=== PATIENT | male | born 1990 | race African-American/Black ===

== ENCOUNTER 2018-10-26 07:39 | Inpatient (IN) ==
[2018-10-26 08:24] LABS: Baso # (Auto) 0.1 th/mm3 (0.0-0.2); Baso % (Auto) 0.7 % (0.0-2.0); Eos % (Auto) 0.2 % (0.0-4.0); Hematocrit 42.9 % (39.0-51.0); Hemoglobin 14.7 gm/dL (13.0-17.0); Lymph # (Auto) 1.1 th/mm3 (1.0-4.8); Lymph % (Auto) 12.4 % (9.0-44.0); Mean Corpuscular HGB Conc 34.4 % (32.0-36.0); Mean Corpuscular Volume 90.4 fL (80.0-100.0); Mean Platelet Volume 8.1 fL (7.0-11.0); Mono # (Auto) 0.6 th/mm3 (0.0-0.9); Mono % (Auto) 6.8 % (0.0-8.0); Neut # (Auto) 7.2 th/mm3 (1.8-7.7); Neut % (Auto) 79.9 % (16.0-70.0); Platelet Count 290 th/mm3 (150-450); Red Blood Count 4.75 mil/mm3 (4.50-5.90); Red Cell Distribution Width 12.5 % (11.6-17.2)
--- NOTE | 2018-10-26 08:31 | ED ---
HPI General Chief complaint: Abdominal Pain Stated complaint: Psych Eval/Abd Pain Complaint Time Seen by Provider: 10/26/18 07:47 History of Present Illness HPI narrative: This is a 27-year-old male with a history of anxiety disorder, acute life stressors, who presents today with complaints of chest pain times 1 month, right lower groin pain times 2 months. Patient also reports severe anxiety. According to the triage nurse, the patient's brother dropped him off here and stated he needed to be seen and evaluated by psychiatry. The patient was just recently here under a [place] and was released. Brother states that he is leaving to go out of town and the patient told him that he may not be alive when he comes home. The brother is extremely frustrated stating that his brother needs psychiatric help however reports that they immediately lifted his [place] act last time he was here. When I asked the patient if he was serious about his thoughts, he states that he did think about hurting himself because he is extremely stressed and feels as though he has no hope in life. He states that if he is discharged he knows he will be homeless because his brother does not want him living here. He is also anxious and depressed because he never knew his parents. The patient appears very emotionally tearful. He denies any drugs of abuse. He had a very flat affect. Related Data Home Medications Medication Instructions Recorded Confirmed No Known Home Medications 10/23/18 10/26/18 Allergies Allergy/AdvReac Type Severity Reaction Status Date / Time No Known Allergies Allergy Verified 10/22/18 20:36 Review of Systems ROS: all other systems reviewed are negative Constitutional Reports system reviewed and no additional complaints, except as [facility] Eyes Reports system reviewed and no additional complaints, except as [facility] ENT Reports system reviewed and no additional complaints, except as [facility] Cardiovascular Reports chest pain (Constant left upper chest pain times 1 month.), Denies diaphoresis and Denies dyspnea Respiratory Denies chest congestion, Denies cough and Denies dyspnea Gastrointestinal Reports abdominal pain (See below.), Denies nausea, Denies vomiting and Reports other (Right lower quadrant/groin pain.) Genitourinary Denies flank pain, Denies penile discharge, Denies scrotal swelling, Denies urinary frequency and Reports other (Pain in the right inguinal area.) Musculoskeletal Reports system reviewed and no additional complaints, except as [facility] Neurologic Reports system reviewed and no additional complaints, except as [facility] Family History Family History Other Family history unobtainable Social History Social History Substance History: No History of Abuse Second Hand Smoke Exposure: No Smoking Status: Never smoker How Often Do You Have a Drink Containing Alcohol: Never Recent Travel in [facility] within the Last 8 Weeks: No Recent Out of Country Travel within the Last 8 Weeks: No Immunization History Tetanus Immunization: >5 Years Exam Narrative Exam Narrative: GENERAL: Well-developed well-nourished male in no acute respiratory distress. SKIN: Focused skin assessment warm/dry. HEAD: Atraumatic. Normocephalic. EYES: No scleral icterus. No injection or drainage. ENT: No nasal bleeding or discharge. Mucous membranes pink and moist. NECK: Trachea midline. Supple. CARDIOVASCULAR: Regular rate and rhythm. No murmur appreciated. RESPIRATORY: No accessory muscle use. Clear to auscultation. Breath sounds equal bilaterally. GASTROINTESTINAL: Abdomen soft, non-tender, nondistended. Patient has subjective tenderness in his right inguinal area. There is no evidence of hernia. There is no rebound or guarding. MUSCULOSKELETAL: No obvious deformities. No clubbing. No cyanosis. No edema. NEUROLOGICAL: Awake and alert. No obvious cranial nerve deficits. Motor grossly within normal limits. Normal speech. Course Initial Documented Vital Signs Temperature 99.3 F 10/26/18 07:41 Pulse Rate 83 10/26/18 07:41 Respiratory Rate 16 10/26/18 07:41 Blood Pressure 147/91 H 10/26/18 07:41 Pulse Oximetry 99 10/26/18 07:41 Last Documented Vital Signs Temperature 97.7 F 10/29/18 06:22 Pulse Rate 80 10/29/18 13:23 Respiratory Rate 18 10/29/18 06:22 Blood Pressure 143/78 H 10/29/18 13:23 Pulse Oximetry 98 10/29/18 06:22 Medical Decision Making MDM Narrative Medical decision making narrative: This is a 27-year-old male who presents for the second time in 1 week for complaints of anxiety and suicidal thoughts. Patient states that he told his brother he may not be alive when he returns home from his trip. Brother dropped him off here and is adamant that he be evaluated. He was concerned that when he was last [place] it and he was sent home immediately. The patient is very flat affect and states he is extremely anxious. He has acute life stressors. He is medically cleared to be evaluated by psychiatry. 1345[facility] called stated that patient has been ambulating around [facility] talking on phone all day long however over the last hour he is clutching his chest and stating that he has chest pain. I instructed them to do an EKG, draw another troponin and also please do a d-dimer and then let me know when results are all back. 1430- EKG viewed by physician, no concerning abnormalities. Patient was given 324 mg of aspirin p.o. troponin and d-dimer were ordered and completed and both were negative. EKG showed arrhythmia with a NV interval of 162, QRS duration of 92. No STEMI. No further action required at this time. Medical Screen Exam Complete: Yes Emergency Medical Condition: Yes Differential Diagnosis Differential Diagnosis: Acute life stressors versus anxiety versus suicidal ideation versus depression versus somatic disorder. Lab Data Result diagrams: 10/29/18 00:45 10/29/18 00:45 Lab Results 10/26/18 10/26/18 10/26/18 Range/Units 08:10 08:10 09:21 WBC 9.0 (4.0-11.0) th/mm3 RBC 4.75 (4.50-5.90) mil/mm3 Hgb 14.7 (13.0-17.0) gm/dL Hct 42.9 (39.0-51.0) % MCV 90.4 (80.0-100.0) fL MCH 31.0 (27.0-34.0) pg MCHC 34.4 (32.0-36.0) % RDW 12.5 (11.6-17.2) % Plt Count 290 (150-450) th/mm3 MPV 8.1 (7.0-11.0) fL Neut % (Auto) 79.9 H (16.0-70.0) % Lymph % (Auto) 12.4 (9.0-44.0) % Fountain % (Auto) 6.8 (0.0-8.0) % Eos % (Auto) 0.2 (0.0-4.0) % Baso % (Auto) 0.7 (0.0-2.0) % Neut # (Auto) 7.2 (1.8-7.7) th/mm3 Lymph # (Auto) 1.1 (1.0-4.8) th/mm3 Fountain # (Auto) 0.6 (0.0-0.9) th/mm3 Eos # (Auto) 0.0 (0.0-0.4) th/mm3 Baso # (Auto) 0.1 (0.0-0.2) th/mm3 WBC Differential . Differential Comment Auto diff final D-Dimer Quant (PE/DVT) (0.00-0.50) mg/L FEU Sodium 138 (136-145) meq/L Potassium 3.5 (3.5-5.1) meq/L Chloride 103 (98-107) meq/L Carbon Dioxide 26.4 (21.0-32.0) meq/L Anion Gap 9 (5-15) meq/L BUN 9 (7-18) mg/dL Creatinine 0.97 (0.60-1.30) mg/dL Estimated GFR Greater than 89 (>89) mL/min Random Glucose 101 (74-106) mg/dL Hemoglobin A1c (4.3-6.0) % Calcium 9.5 (8.5-10.1) mg/dL Total Bilirubin 0.6 (0.2-1.0) mg/dL AST 19 (15-37) U/L ALT 31 (12-78) U/L Alkaline Phosphatase 72 (45-117) U/L Total Creatine Kinase 247 (39-308) U/L CK-MB (CK-2) Less than 1.0 (0.5-3.6) ng/mL Troponin I Less than 0.02 L (0.02-0.05) ng/mL Total Protein 8.4 H (6.4-8.2) g/dL Albumin 4.5 (3.4-5.0) g/dL Triglycerides (42-150) mg/dL Cholesterol (120-200) mg/dL LDL Cholesterol, Calc (0-99) mg/dL HDL Cholesterol (40.0-60.0) mg/dL Cholesterol/HDL Ratio Ratio Lipase 162 (73-393) U/L Vitamin B12 (193-986) pg/mL TSH (0.358-3.740) uIU/mL Urine Color Yellow (Yellw/Straw) Urine Clarity Hazy H (Clear) Urine pH 7.0 (5.0-8.5) Ur Specific Riddle 1.011 (1.002-1.035) Urine Protein Negative (Neg-Trace) mg/dL Urine Glucose (UA) Negative (Negative) mg/dL Urine Ketones 20 (Negative) mg/dL Urine Occult Blood Negative (Negative) Urine Nitrate Negative (Negative) Urine Bilirubin Negative (Negative) Urine Urobilinogen Less than 2 (Less than 2) mg/dL Ur Leukocyte Esterase Negative (Negative) Urine RBC Less than 1 (0-3) /hpf Urine WBC 1 (0-5) /hpf Ur Squamous Epith Cells <1 (0-5) /hpf Urine Bacteria Occasional H (None) /hpf Hyaline Casts 1 (0-3) /lpf Urine Mucus Many H (Occasional) /lpf Micro UA Comment Culture not ind Ur Microscopic Review Not Reportable Urine Culture Comments Culture not ind Urine Opiates Screen (Neg) Ur Barbiturates Screen (Neg) Ur Amphetamines Screen (Neg) U Benzodiazepines Scrn (Neg) Urine Cocaine Screen (Neg) U Cannabinoids Screen (Neg) 10/26/18 10/26/18 10/26/18 Range/Units 09:21 14:00 14:00 WBC (4.0-11.0) th/mm3 RBC (4.50-5.90) mil/mm3 Hgb (13.0-17.0) gm/dL Hct (39.0-51.0) % MCV (80.0-100.0) fL MCH (27.0-34.0) pg MCHC (32.0-36.0) % RDW (11.6-17.2) % Plt Count (150-450) th/mm3 MPV (7.0-11.0) fL Neut % (Auto) (16.0-70.0) % Lymph % (Auto) (9.0-44.0) % Fountain % (Auto) (0.0-8.0) % Eos % (Auto) (0.0-4.0) % Baso % (Auto) (0.0-2.0) % Neut # (Auto) (1.8-7.7) th/mm3 Lymph # (Auto) (1.0-4.8) th/mm3 Fountain # (Auto) (0.0-0.9) th/mm3 Eos # (Auto) (0.0-0.4) th/mm3 Baso # (Auto) (0.0-0.2) th/mm3 WBC Differential Differential Comment D-Dimer Quant (PE/DVT) 0.21 (0.00-0.50) mg/L FEU Sodium (136-145) meq/L Potassium (3.5-5.1) meq/L Chloride (98-107) meq/L Carbon Dioxide (21.0-32.0) meq/L Anion Gap (5-15) meq/L BUN (7-18) mg/dL Creatinine (0.60-1.30) mg/dL Estimated GFR (>89) mL/min Random Glucose (74-106) mg/dL Hemoglobin A1c (4.3-6.0) % Calcium (8.5-10.1) mg/dL Total Bilirubin (0.2-1.0) mg/dL AST (15-37) U/L ALT (12-78) U/L Alkaline Phosphatase (45-117) U/L Total Creatine Kinase (39-308) U/L CK-MB (CK-2) (0.5-3.6) ng/mL Troponin I Less than 0.02 L (0.02-0.05) ng/mL Total Protein (6.4-8.2) g/dL Albumin (3.4-5.0) g/dL Triglycerides (42-150) mg/dL Cholesterol (120-200) mg/dL LDL Cholesterol, Calc (0-99) mg/dL HDL Cholesterol (40.0-60.0) mg/dL Cholesterol/HDL Ratio Ratio Lipase (73-393) U/L Vitamin B12 (193-986) pg/mL TSH (0.358-3.740) uIU/mL Urine Color (Yellw/Straw) Urine Clarity (Clear) Urine pH (5.0-8.5) Ur Specific Riddle (1.002-1.035) Urine Protein (Neg-Trace) mg/dL Urine Glucose (UA) (Negative) mg/dL Urine Ketones (Negative) mg/dL Urine Occult Blood (Negative) Urine Nitrate (Negative) Urine Bilirubin (Negative) Urine Urobilinogen (Less than 2) mg/dL Ur Leukocyte Esterase (Negative) Urine RBC (0-3) /hpf Urine WBC (0-5) /hpf Ur Squamous Epith Cells (0-5) /hpf Urine Bacteria (None) /hpf Hyaline Casts (0-3) /lpf Urine Mucus (Occasional) /lpf Micro UA Comment Ur Microscopic Review Urine Culture Comments Urine Opiates Screen Neg (Neg) Ur Barbiturates Screen Neg (Neg) Ur Amphetamines Screen Neg (Neg) U Benzodiazepines Scrn Neg (Neg) Urine Cocaine Screen Neg (Neg) U Cannabinoids Screen Neg (Neg) 10/28/18 10/28/18 10/28/18 Range/Units 07:50 07:50 07:50 WBC (4.0-11.0) th/mm3 RBC (4.50-5.90) mil/mm3 Hgb (13.0-17.0) gm/dL Hct (39.0-51.0) % MCV (80.0-100.0) fL MCH (27.0-34.0) pg MCHC (32.0-36.0) % RDW (11.6-17.2) % Plt Count (150-450) th/mm3 MPV (7.0-11.0) fL Neut % (Auto) (16.0-70.0) % Lymph % (Auto) (9.0-44.0) % Fountain % (Auto) (0.0-8.0) % Eos % (Auto) (0.0-4.0) % Baso % (Auto) (0.0-2.0) % Neut # (Auto) (1.8-7.7) th/mm3 Lymph # (Auto) (1.0-4.8) th/mm3 Fountain # (Auto) (0.0-0.9) th/mm3 Eos # (Auto) (0.0-0.4) th/mm3 Baso # (Auto) (0.0-0.2) th/mm3 WBC Differential Differential Comment D-Dimer Quant (PE/DVT) (0.00-0.50) mg/L FEU Sodium 139 (136-145) meq/L Potassium 3.6 (3.5-5.1) meq/L Chloride 103 (98-107) meq/L Carbon Dioxide 26.9 (21.0-32.0) meq/L Anion Gap 9 (5-15) meq/L BUN 12 (7-18) mg/dL Creatinine 1.04 (0.60-1.30) mg/dL Estimated GFR Greater than 89 (>89) mL/min Random Glucose 115 H (74-106) mg/dL Hemoglobin A1c 5.8 (4.3-6.0) % Calcium 9.8 (8.5-10.1) mg/dL Total Bilirubin (0.2-1.0) mg/dL AST (15-37) U/L ALT (12-78) U/L Alkaline Phosphatase (45-117) U/L Total Creatine Kinase (39-308) U/L CK-MB (CK-2) (0.5-3.6) ng/mL Troponin I (0.02-0.05) ng/mL Total Protein (6.4-8.2) g/dL Albumin (3.4-5.0) g/dL Triglycerides 51 (42-150) mg/dL Cholesterol 119 L (120-200) mg/dL LDL Cholesterol, Calc 65 (0-99) mg/dL HDL Cholesterol 43.7 (40.0-60.0) mg/dL Cholesterol/HDL Ratio 2.72 Ratio Lipase (73-393) U/L Vitamin B12 549 Cancelled (193-986) pg/mL TSH 2.560 Cancelled (0.358-3.740) uIU/mL Urine Color (Yellw/Straw) Urine Clarity (Clear) Urine pH (5.0-8.5) Ur Specific Riddle (1.002-1.035) Urine Protein (Neg-Trace) mg/dL Urine Glucose (UA) (Negative) mg/dL Urine Ketones (Negative) mg/dL Urine Occult Blood (Negative) Urine Nitrate (Negative) Urine Bilirubin (Negative) Urine Urobilinogen (Less than 2) mg/dL Ur Leukocyte Esterase (Negative) Urine RBC (0-3) /hpf Urine WBC (0-5) /hpf Ur Squamous Epith Cells (0-5) /hpf Urine Bacteria (None) /hpf Hyaline Casts (0-3) /lpf Urine Mucus (Occasional) /lpf Micro UA Comment Ur Microscopic Review Urine Culture Comments Urine Opiates Screen (Neg) Ur Barbiturates Screen (Neg) Ur Amphetamines Screen (Neg) U Benzodiazepines Scrn (Neg) Urine Cocaine Screen (Neg) U Cannabinoids Screen (Neg) 10/29/18 10/29/18 10/29/18 Range/Units 00:45 00:45 00:45 WBC 13.8 H (4.0-11.0) th/mm3 RBC 4.86 (4.50-5.90) mil/mm3 Hgb 15.0 (13.0-17.0) gm/dL Hct 43.3 (39.0-51.0) % MCV 89.1 (80.0-100.0) fL MCH 30.8 (27.0-34.0) pg MCHC 34.6 (32.0-36.0) % RDW 13.1 (11.6-17.2) % Plt Count 307 (150-450) th/mm3 MPV 8.1 (7.0-11.0) fL Neut % (Auto) 75.1 H (16.0-70.0) % Lymph % (Auto) 15.5 (9.0-44.0) % Fountain % (Auto) 8.8 H (0.0-8.0) % Eos % (Auto) 0.1 (0.0-4.0) % Baso % (Auto) 0.5 (0.0-2.0) % Neut # (Auto) 10.4 H (1.8-7.7) th/mm3 Lymph # (Auto) 2.1 (1.0-4.8) th/mm3 Fountain # (Auto) 1.2 H (0.0-0.9) th/mm3 Eos # (Auto) 0.0 (0.0-0.4) th/mm3 Baso # (Auto) 0.1 (0.0-0.2) th/mm3 WBC Differential . Differential Comment Auto diff final D-Dimer Quant (PE/DVT) (0.00-0.50) mg/L FEU Sodium 139 (136-145) meq/L Potassium 3.7 (3.5-5.1) meq/L Chloride 104 (98-107) meq/L Carbon Dioxide 27.3 (21.0-32.0) meq/L Anion Gap 8 (5-15) meq/L BUN 12 (7-18) mg/dL Creatinine 1.18 (0.60-1.30) mg/dL Estimated GFR Greater than 89 (>89) mL/min Random Glucose 84 (74-106) mg/dL Hemoglobin A1c (4.3-6.0) % Calcium 9.2 (8.5-10.1) mg/dL Total Bilirubin 0.6 (0.2-1.0) mg/dL AST 33 (15-37) U/L ALT 35 (12-78) U/L Alkaline Phosphatase 72 (45-117) U/L Total Creatine Kinase (39-308) U/L CK-MB (CK-2) (0.5-3.6) ng/mL Troponin I 0.02 (0.02-0.05) ng/mL Total Protein 8.6 H (6.4-8.2) g/dL Albumin 4.6 (3.4-5.0) g/dL Triglycerides (42-150) mg/dL Cholesterol (120-200) mg/dL LDL Cholesterol, Calc (0-99) mg/dL HDL Cholesterol (40.0-60.0) mg/dL Cholesterol/HDL Ratio Ratio Lipase (73-393) U/L Vitamin B12 530 (193-986) pg/mL TSH 3.280 (0.358-3.740) uIU/mL Urine Color (Yellw/Straw) Urine Clarity (Clear) Urine pH (5.0-8.5) Ur Specific Riddle (1.002-1.035) Urine Protein (Neg-Trace) mg/dL Urine Glucose (UA) (Negative) mg/dL Urine Ketones (Negative) mg/dL Urine Occult Blood (Negative) Urine Nitrate (Negative) Urine Bilirubin (Negative) Urine Urobilinogen (Less than 2) mg/dL Ur Leukocyte Esterase (Negative) Urine RBC (0-3) /hpf Urine WBC (0-5) /hpf Ur Squamous Epith Cells (0-5) /hpf Urine Bacteria (None) /hpf Hyaline Casts (0-3) /lpf Urine Mucus (Occasional) /lpf Micro UA Comment Ur Microscopic Review Urine Culture Comments Urine Opiates Screen (Neg) Ur Barbiturates Screen (Neg) Ur Amphetamines Screen (Neg) U Benzodiazepines Scrn (Neg) Urine Cocaine Screen (Neg) U Cannabinoids Screen (Neg) Imaging Data Radiologist's impression: Chest X-Ray 10/26/18 07:56 CONCLUSION: 1. Cardiomegaly. 2. No focal infiltrate or pulmonary vascular congestion. Head CT 10/29/18 00:00 CONCLUSION: Negative noncontrast head CT. . Discharge Plan Discharge Disposition Patient Disposition: ED Admit(ED Internal Use Only) Discharge Condition Condition: Stable Discharge Order Discharge Orders: ED Use Only Admit Order (Routine); Ordered 10/27/18 Ordered By: Mita Tovar Discharge Details Diagnosis: Atypical chest pain, Right groin pain, Anxiety, Suicidal ideation Physicians Team ED Provider: Ronnie Chakraborty Primary Care Provider: UNKNOWN, Attending Provider: Jatin Brandt Other Providers: Cameron Mcdonald Status ED Status: Left Department Discharge Information Discharge Date/Time: 10/27/18 16:40
[2018-10-26 08:44] LABS: Albumin 4.5 g/dL (3.4-5.0); Anion Gap 9 meq/L (5-15); Aspartate Aminotransferase 19 U/L (15-37); Blood Urea Nitrogen 9 mg/dL (7-18); Calcium 9.5 mg/dL (8.5-10.1); Carbon Dioxide 26.4 meq/L (21.0-32.0); Chloride 103 meq/L (98-107); Glomerular Filtration Rate Greater Than 89 mL/min (>89); Glucose,Random 101 mg/dL (74-106); Lipase 162 U/L (73-393); Potassium 3.5 meq/L (3.5-5.1); Sodium 138 meq/L (136-145)
--- NOTE | 2018-10-26 08:44 | XR ---
EXAM DATE: 10/26/2018 8:33 AM EST AGE/SEX: 27 years / Male INDICATIONS: Chest pain. CLINICAL DATA: This is the patient's initial encounter. Patient reports that signs and symptoms have been present for 1 day and indicates a pain score of 6/10. MEDICAL/SURGICAL HISTORY: None. None. COMPARISON: No prior exams available for comparison. FINDINGS: The heart is enlarged. The pulmonary vascular pattern is normal. The lungs are clear. CONCLUSION: 1. Cardiomegaly. 2. No focal infiltrate or pulmonary vascular congestion. Electronically signed by: Duke Vera MD Board Certified Radiologist 10/26/2018 8:43 AM EST
[2018-10-26 08:45] LABS: Alanine Aminotransferase 31 U/L (12-78)
[2018-10-26 08:49] LABS: Alkaline Phosphatase 72 U/L (45-117); Creatine Kinase 247 U/L (39-308); Total Protein 8.4 g/dL (6.4-8.2)
[2018-10-26 10:02] LABS: Amphetamine Screen,Urine Neg (Neg); Barbiturate Screen,Urine Neg (Neg); Cannabinoid Screen,Urine Neg (Neg); Cocaine Screen,Urine Neg (Neg)
[2018-10-26 10:03] LABS: Opiate Screen,Urine Neg (Neg)
[2018-10-26 10:13] LABS: Bacteria,Urine Occasional /hpf; Bilirubin,Urine Negative (Negative); Clarity,Urine Hazy (Clear); Color,Urine Yellow (Yellw/Straw); Glucose,Urine (UA) Negative (Negative); Hyaline Casts,Urine 1 /lpf (0-3); Leukocyte Esterase,Urine Negative (Negative); Mucus,Urine Many /lpf (Occasional); Nitrite,Urine Negative (Negative); Specific Gravity,Urine 1.011 (1.002-1.035); Squamous Epithelial Cell,Urine <1 /hpf (0-5)
--- NOTE | 2018-10-26 19:40 | ECG ---
Date Performed: 10/26/2018 Time Performed: 09:34:58 PTAGE: 27 years EKG: Sinus rhythm WITH SINUS ARRHYTHMIA POSSIBLE RIGHT VENTRICULAR CONDUCTION DELAY EARLY REPOLARIZATION BORDERLINE EC G NO PREVIOUS TRACING DOCTOR: Lakeisha Billingsley Interpretating Date/Time 10/26/2018 19:38:43
[2018-10-27] MEDS ORDERED: Aluminum/Magnesium/Simethacone Susp 30 ML UDC PO PRN (16:00)
--- NOTE | 2018-10-27 16:20 | P.HPPSY ---
Provisional Diagnosis Admission Date: October 26, 2018 07:39 [place] I.: Unspecified psychosis Competence Certification of Person's Competence To Provide Express and Informed Consent I have personally examined Richard Cronin, a person being served at [facility] on, October 27, 2018 1608. Express and informed consent means consent voluntarily given in writing, by a competent person, after sufficient explanation and disclosure of the subject matter involved to enable the person to make a knowing and willful decision without any element of force, fraud, deceit, duress, or other form of constraint or coercion. This person is 18 years of age or older, is not now known to be incompetent to consent to treatment with a guardian advocate, and does not have a health care surrogate or proxy currently making medical treatment decisions. I have found this person to be one of the following: [xxx] Competent to provide express and informed consent, as defined above, for voluntary admission to this facility and is competent to provide express and informed consent for treatment. He/she has the consistent capacity to make well reasoned, willful, and knowing decisions concerning his or her medical or mental health treatment. The person fully and consistently understands the purpose of the admission for examination/placement and is fully capable of personally exercising all rights assured [place] Incompetent to provide express and informed consent to voluntary admission, and this is incompetent to provide express and informed consent to treatment. The person must be transferred to involuntary status and a petition for a guardian advocate filed with the Circuit Court. [] Refusing to provide express and informed consent to voluntary admission but is competent to provide express and informed consent for treatment. The person must be discharged or transferred to involuntary status. Form shall be completed within 24 hours of a person's arrival at the receiving facility and filed in the clinical record of each person: 1. Admitted on a voluntary basis 2. Permitted to provide express and informed consent to his/her own treatment 3. Allowed to transfer from involuntary to voluntary status 4. Prior to permitting a person to consent to his or her own treatment after having been previously found incompetent to consent to treatment. History of Present Illness Capacity: Has capacity History of Present Illness: Patient is a 27-year-old man, single, no children, unemployed, domiciled with stepmother, with an unclear past psychiatric history but anxiety disorder as per chart, but denies any previous psychiatric admissions, suicide attempts but has one episode of self-injurious behavior where he reports having burned his hand as a child and as well and endorsing being on psychiatric medications as a child as well (unspecified), with a substance use history significant for marijuana use and alcohol use which he states last use 1 year ago, with no significant past medical history who was brought in voluntarily by family with physical complaints and anxiety which upon evaluation patient was noted to have some disorganization, endorsing auditory hallucinations as well as suicidal ideation which patient was admitted to the inpatient psychiatry for further evaluation and management. As per chart patient was recently [place] acted and was discharged and had family endorse concern of suicide. Upon evaluation seen with staff noted B, cooperative. He is noted to have some disorganization during interview. He states that he had been feeling "weird, anxious and depressed" for the past couple of months patient also endorsed having "drank a lot used verbal and marijuana in contrary to report of him having stopped a year ago when later questioned about substance use. Patient states that sometimes he has a problem "during the day and night" but was able to specify due to his disorganization will provide more history. He also mentions having paranoid persecutory delusions of "5 people" but not able to elaborate more for the past year. He states that he has been having recent suicide ideation 3 days ago as well as today but states that he is very close and acting on it. He states having had a suicide ideations this morning but denies at time of interview and also endorsing nonspecific homicidal ideation but did not elaborate toward who the patient was noted to hesitate and refused to continue to explain. Patient also reporting having had previous episodes of auditory hallucinations stating that he heard a lot of voices around him but denying at time of interview. Family psychiatric history: Denies Past psychiatric history: Anxiety disorder as per chart, no previous psychiatric admissions, suicide attempts, has one previous self-injurious behavior burning his hands as a child. Patient reports having been on psychiatric medication as a child but was unable to recall. Substance use history: Tobacco use "sometimes", reports alcohol marijuana use 1 year ago contrary to recent statement during interview that he drank a lot and used a lot of marijuana. Urine toxicology was negative. Past with history: Denies Allergies: NKDA Social history: Single, unemployed, domiciled stepmother. Review of Systems All other systems reviewed negative except as stated in HPI PMFSH - History History Provided By: Patient, Medical Record - Medical History Medical History: Medical History (Last Reviewed 10/26/18 @ 08:06 by Raissa Rutherford) Patient denies medical problems - Surgical History Surgical History: Surgical History (Last Reviewed 10/26/18 @ 08:06 by Raissa Rutherford) No history of previous surgery - Tobacco History Second Hand Smoke Exposure: No Smoking Status: Never smoker - Alcohol History How Often Do You Have a Drink Containing Alcohol: Never - Substance Use History Substance History: No History of Abuse - Travel History Recent Travel in the [place] Within the Last 8 Weeks: No Recent Travel Out of the Country Within the Last 8 Weeks: No - Immunization History Tetanus Immunization: >5 Years Quality Measures - Psychiatric History Violence risk to others in the last 6 months: Elevated due to recent endorsement of homicidal ideation but was not able to elaborate. Violence risk to self in the last 6 months: Elevated due to recent suicide ideation. - Substance Abuse History Drug or alcohol use in the past 12 months: See HPI - Patient Strengths Patient's strengths (minimum of 2): Verbal and communicative Medications and Allergies Active Medications: Active Medications Acetaminophen (Tylenol) 650 mg PO Q4H PRN PRN Reason: Pain 1-5 or Temp >101F Al Hydrox/Mg Hydrox/Simethicone (Mag-Al Plus Susp Liq) 30 ml PO Q6H PRN PRN Reason: DYSPEPSIA Al Hydroxide/Mg Hydroxide (Milk Of Magnesia Liq) 30 ml PO Q12H PRN PRN Reason: Mild Constipation Diphenhydramine HCl (Benadryl) 50 mg PO HS PRN PRN Reason: INSOMNIA Hydroxyzine HCl (Atarax) 50 mg PO Q6H PRN PRN Reason: ANXIETY Quetiapine Fumarate (Seroquel) 25 mg PO BID PADMINI Sodium Chloride (Ns Flush) 2 ml IV.FLUSH PRN PRN PRN Reason: FLUSH AFTER USING IV ACCESS Allergies Allergy/AdvReac Type Severity Reaction Status Date / Time No Known Allergies Allergy Verified 10/22/18 20:36 Home Medications Medication Instructions Recorded Confirmed Type No Known Home Medications 10/23/18 10/26/18 History Results - Labs CBC & Chem 7: 10/26/18 08:10 10/26/18 08:10 Exam Vital signs: Vital Signs 10/26/18 18:29 10/26/18 22:35 10/27/18 05:01 Temperature 99.2 F 99.9 F H 99.2 F Pulse Rate 96 H 88 63 Respiratory Rate 18 16 17 Blood Pressure 145/94 H 138/78 131/73 Pulse Oximetry 96 98 100 10/27/18 10:34 Temperature Pulse Rate 100 H Respiratory Rate 16 Blood Pressure 154/94 H Pulse Oximetry 100 Intake & Output 10/26/18 10/27/18 10/27/18 18:59 06:59 18:59 Weight 79.832 kg Narrative: Patient not noted to be in acute distress, no gross motor abnormalities, no signs of tremor or EPS, no psychomotor agitation or retardation. - Constitutional no acute distress, cooperative Mental Status Examination Appearance: Appropriate Consciousness: Alert Orientation: Person, Place, Date/Time Motor Activity: Normal gait Speech: Unremarkable Language: Adequate Fund of Knowledge: Inadequate Attention and Concentration: Inadequate Memory: Impaired Mood: Sad, Anxious Affect: Sad, Anxious Thought Process & Associations: Intact Thought Content: Hallucinations Hallucination Type: Auditory Delusion Type: Paranoid, Other (Respiratory) Suicidal Ideation: Yes Suicidal Plan: No Suicidal Intention: No Homicidal Ideation: Yes Homicidal Plan: No Homicidal Intention: No Insight: Poor Judgment: Impulsive Assessment and Plan - Assessment (1) Unspecified psychosis Code(s): F29 - Unspecified psychosis not due to a substance or known physiological condition Status: Acute - Plan Plan: Estimated LOS: [] days Patient is a 27-year-old man who carries a diagnosis of anxiety disorder, no previous psychiatric admissions, no previous suicide attempt, has history of self interest behavior, with substance use history significant for marijuana and alcohol use although urine tox culture was negative on this occasion, was brought in by family due to concerns of depression and suicidal ideation which patient was noted to be somewhat disorganized and having paranoid ideation along with auditory hallucinations and endorsing suicidal homicidal ideations. This is a second ED visit which family has experienced deep concern for patient safety and well-being. Patient will be admitted in the inpatient psychiatric unit, patient will be admitted under voluntary status and has capacity consent for treatment. We will start patient on quetiapine 25 g p.o. twice daily as patient is robinson to antipsychotics will require upward titration for psychosis if tolerated well. Diphenhydramine 50 mg p.o. at bedtime as needed for insomnia, hydroxyzine 50 mg every 6 hours as needed for anxiety. We will continue to monitor mood and behavior. Social work intervention for psychosocial assessment. Discharge planning in progress. Justification for Continued Inpatient Stay: At risk of further decompensation at lower level care.
--- NOTE | 2018-10-27 20:49 | ECG ---
Date Performed: 10/26/2018 Time Performed: 14:05:56 PTAGE: 27 years EKG: SINUS TACHYCARDIA EARLY REPOLARIZATION ABNORMAL RHYTHM ECG INTERPRETATION BASED ON A DEFAUL T AGE OF 41 YEARS NO PREVIOUS TRACING DOCTOR: Debra Quarles Interpretating Date/Time 10/27/2018 20:42:58
[2018-10-27] MEDS: QUEtiapine 25 MG Tablet PO SCH (21:06)
[2018-10-28 08:40] LABS: Anion Gap 9 meq/L (5-15); Blood Urea Nitrogen 12 mg/dL (7-18); Calcium 9.8 mg/dL (8.5-10.1); Carbon Dioxide 26.9 meq/L (21.0-32.0); Chloride 103 meq/L (98-107); Glomerular Filtration Rate Greater Than 89 mL/min (>89); Glucose,Random 115 mg/dL (74-106); Potassium 3.6 meq/L (3.5-5.1); Sodium 139 meq/L (136-145)
[2018-10-28 08:41] LABS: Cholesterol 119 mg/dL (120-200)
[2018-10-28 08:43] LABS: Chol/HDL Ratio 2.72 Ratio; HDL Cholesterol 43.7 mg/dL (40.0-60.0); LDL Cholesterol,Calculated 65 mg/dL (0-99); Triglycerides 51 mg/dL (42-150)
[2018-10-28] MEDS: QUEtiapine 25 MG Tablet PO SCH (10:05)
--- NOTE | 2018-10-28 12:18 | P.PNPSY ---
Subjective Remarks: Reviewed electronic medical records and discussed case with staff. Follow-up was conducted in the patient's room with SERVANDO Parrish present. He was found sleeping in no apparent distress. He wakes to verbal stimulation. He does appear to be internally stimulated. States that he is "good". But he appears to perhaps have some thought blocking present. States his appetite's been good he has been sleeping well. He denies any side effects from the Seroquel at this time. Mental Status Examination Appearance: Appropriate Consciousness: Alert Orientation: Person, Place, Date/Time Motor Activity: Normal gait Speech: Unremarkable Language: Adequate Fund of Knowledge: Inadequate Attention and Concentration: Inadequate Memory: Impaired Mood: Sad, Anxious Affect: Sad, Anxious Thought Process & Associations: Intact Thought Content: Hallucinations Hallucination Type: Auditory Delusion Type: Paranoid, Other (Respiratory) Suicidal Ideation: Yes Suicidal Plan: No Suicidal Intention: No Homicidal Ideation: Yes Homicidal Plan: No Homicidal Intention: No Insight: Poor Judgment: Impulsive Assessment and Plan - Assessment (1) Unspecified psychosis Code(s): F29 - Unspecified psychosis not due to a substance or known physiological condition Status: Acute - Plan Plan: Patient will be reevaluated by the attending psychiatrist. Will increase Seroquel dosage to 50 mg twice daily as patient is denying any side effects at this time. Justification for Continued Inpatient Stay: Moving this patient to a less restrictive environment would likely result in decompensation.
--- NOTE | 2018-10-28 16:21 | P.DSPSY ---
Psychiatry Discharge Summary Inpatient Psychiatric care?: Yes Advance Directives: No Mental Health Advance Directive: No Health Care Proxy: No - Admission Admission Date: October 27, 2018 16:07 - Admission Diagnosis (1) Unspecified psychosis Code(s): F29 - Unspecified psychosis not due to a substance or known physiological condition Brief History: Patient is a 27-year-old man, single, no children, unemployed, domiciled with stepmother, with an unclear past psychiatric history but anxiety disorder as per chart, but denies any previous psychiatric admissions, suicide attempts but has one episode of self-injurious behavior where he reports having burned his hand as a child and as well and endorsing being on psychiatric medications as a child as well (unspecified), with a substance use history significant for marijuana use and alcohol use which he states last use 1 year ago, with no significant past medical history who was brought in voluntarily by family with physical complaints and anxiety which upon evaluation patient was noted to have some disorganization, endorsing auditory hallucinations as well as suicidal ideation which patient was admitted to the inpatient psychiatry for further evaluation and management. As per chart patient was recently [place] acted and was discharged and had family endorse concern of suicide. Upon evaluation seen with staff noted B, cooperative. He is noted to have some disorganization during interview. He states that he had been feeling "weird, anxious and depressed" for the past couple of months patient also endorsed having "drank a lot used verbal and marijuana in contrary to report of him having stopped a year ago when later questioned about substance use. Patient states that sometimes he has a problem "during the day and night" but was able to specify due to his disorganization will provide more history. He also mentions having paranoid persecutory delusions of "5 people" but not able to elaborate more for the past year. He states that he has been having recent suicide ideation 3 days ago as well as today but states that he is very close and acting on it. He states having had a suicide ideations this morning but denies at time of interview and also endorsing nonspecific homicidal ideation but did not elaborate toward who the patient was noted to hesitate and refused to continue to explain. Patient also reporting having had previous episodes of auditory hallucinations stating that he heard a lot of voices around him but denying at time of interview. Family psychiatric history: Denies Past psychiatric history: Anxiety disorder as per chart, no previous psychiatric admissions, suicide attempts, has one previous self-injurious behavior burning his hands as a child. Patient reports having been on psychiatric medication as a child but was unable to recall. Substance use history: Tobacco use "sometimes", reports alcohol marijuana use 1 year ago contrary to recent statement during interview that he drank a lot and used a lot of marijuana. Urine toxicology was negative. Past with history: Denies Allergies: NKDA Social history: Single, unemployed, domiciled stepmother. Tobacco Use In Past 30 Days: No How Often Do You Have a Drink Containing Alcohol: Never Hospital Course: Patient was admitted to a locked inpatient psychiatric unit yesterday. Today I was advised by his nurse that he had developed nuchal rigidity, was febrile, and was having difficulty walking. I did note that earlier when I was with the patient he was grabbing his head as if experiencing a headache. He was unable to answer clearly whether his head did in fact hurt. After a stat consult with Dr. Foy it was decided the patient would be admitted to the medical surgical floor for further evaluation and workup for possible medical illness. - Discharge Discharge Date: 10/28/18 - Discharge Diagnosis (1) Unspecified psychosis Code(s): F29 - Unspecified psychosis not due to a substance or known physiological condition Status: Acute Discharge Disposition: Medical admission to this facility - Discharge Instructions Discharge Diet: Regular Diet Activities You Can Perform: See Additionl Instruction (Per medical providers recommendations) - Discharge Time <= 30 minutes Mental Status Examination Appearance: Appropriate Consciousness: Alert Orientation: Person, Place, Date/Time Motor Activity: Normal gait Speech: Unremarkable Language: Adequate Fund of Knowledge: Inadequate Attention and Concentration: Inadequate Memory: Impaired Mood: Sad, Anxious Affect: Sad, Anxious Thought Process & Associations: Intact Thought Content: Hallucinations Hallucination Type: Auditory Delusion Type: Paranoid, Other (Respiratory) Suicidal Ideation: Yes Suicidal Plan: No Suicidal Intention: No Homicidal Ideation: Yes Homicidal Plan: No Homicidal Intention: No Insight: Poor Judgment: Impulsive Discharge/Advance Care Plan - Results Vital Signs: Last Vital Signs Temp 99.2 F 10/28/18 05:45 Pulse 105 H 10/28/18 05:45 Resp 18 10/28/18 05:45 BP 154/93 H 10/28/18 05:45 Pulse Ox 95 10/28/18 05:45 Lab Results: Abnormal Lab Results 10/28/18 07:50 Sodium 139 Potassium 3.6 Chloride 103 Carbon Dioxide 26.9 Anion Gap 9 BUN 12 Creatinine 1.04 Estimated GFR Greater than 89 Random Glucose 115 H Calcium 9.8 Triglycerides 51 Cholesterol 119 L LDL Cholesterol, Calc 65 HDL Cholesterol 43.7 Cholesterol/HDL Ratio 2.72 Laboratory Results Triglycerides 51 mg/dL (42-150) 10/28/18 07:50 Cholesterol 119 mg/dL (120-200) L 10/28/18 07:50 LDL Cholesterol, Calc 65 mg/dL (0-99) 10/28/18 07:50 HDL Cholesterol 43.7 mg/dL (40.0-60.0) 10/28/18 07:50 Urine Culture Comments Culture not ind 10/26/18 09:21 Summary of Procedures: None Imaging: ITS Impressions Chest X-Ray 10/26/18 07:56 CONCLUSION: 1. Cardiomegaly. 2. No focal infiltrate or pulmonary vascular congestion. Pending Results: None - Medications Number of antipsychotic medications at discharge: 0 - Discharge Care Plan Goals to Promote Your Health: * To prevent worsening of your condition and complications * To maintain your health at the optimal level Directions to Meet Your Goals: Take your medications as prescribed Follow your dietary instruction Follow activity as directed Keep your appointments as scheduled Take your immunizations and boosters as scheduled If your symptoms worsen call your PCP, if no PCP go to Urgent Care Center or Emergency Room For 23/05 questions related to your inpatient stay or results of tests pending at discharge, please contact JAYY Keating at Smoking is Dangerous to Your Health. Avoid second hand smoking
--- NOTE | 2018-10-28 19:25 | P.CON ---
History of Present Illness Service: [facility] Consult date: 10/28/18 Requesting Physician: Jatin Brandt Reason for Consult: rash Primary Care Provider: UNKNOWN Chief Complaint: rash History of Present Illness: Patient is a 27-year-old male of descent, no significant past medical history other than some anxiety. Apparently patient recently moved down here and is currently residing with his brother. He has been seen in the emergency room on 2 different occasions since October 22. Initially he was brought in on 10/22 for reported depression and possible suicidal ideation. He was evaluated and J pod, he denied suicidal ideation. He was referred to [facility] and was discharged in stable condition. He was brought in by his family again, family reported patient was disorganized, endorsing auditory hallucinations as well as suicidal ideation. Family was concerned about suicide and the patient was acting weird. Patient did admit to doing marijuana and possibly other substances but he did not elaborate. Drug screen was negative. There is report that patient has not been sleeping very well nor eating. Patient was admitted to inpatient psych for further evaluation. He was started on Seroquel 25 mg p.o. twice daily. Today, patient was ambulating in hallway when he was noted unsteady, had a jerky walk and looked like he was going to fall. Nurse thought she saw some tremors on his mouth and some facial drooping. Patient was assisted back to his room where he was noted with a red, pinpoint rash to his chest. He was noted slightly tachycardic and blood pressure in the 150s. Temperature was 99.2. Prior to that he had complained of anxiety and had also received Vistaril for reported anxiety. Patient had also complained of a headache and had been noted holding his head. A stat consultation was obtained with hospitalist, however patient was initially difficult to assess. Patient is now evaluated in the presence of nurse and psychiatric attendant. He is sitting up in bed, is unfolding socks and stuffing them in a pillow. He is grabbing his sheets and placing them on the floor. He is ambulating in room, gait is steady. According to nurse, this behavior is not uncommon, as he has been doing this throughout the day. I attempted to speak to patient in both [place] and [place], he was able to provide me his name but did not want to answer any more orientation questions. At times he was reluctant for me to conduct my assessment until the nurse assisted. He does not appear to have any focal deficits, no nuchal rigidity was elicited. Rash it is pretty much resolved. There is no tremors noted, no facial asymmetry. His speech is clear. He denies any headache, does not appear to have any photophobia. Initially, patient was going to be transferred to the main hospital due to concern that he was having possible meningeal symptoms and may need LP. However, symptoms have now resolved, it is unclear whether he had reaction to Seroquel. Pt. is not cooperative, refuses to get on wheelchair. Case was discussed with director of early childhood and the decision was made to keep patient in psych with consultation with hospitalist services for further work up. Review of Systems unobtainable due to mental status PMFSH - History History Provided By: Patient - Medical History Medical History: Medical History (Last Reviewed 10/28/18 @ 18:49 by JAYY Feliz) Patient denies medical problems - Surgical History Surgical History: Surgical History (Last Reviewed 10/28/18 @ 18:49 by JAYY Feliz) No history of previous surgery - Family History Family History: Family History (Last Updated 10/28/18 @ 18:49 by JAYY Feliz) Other Family history unobtainable - Social History I have reviewed the patient's Social History: Yes - Tobacco History Second Hand Smoke Exposure: No Tobacco Use In Past 30 Days: No Smoking Status: Never smoker - Alcohol History How Often Do You Have a Drink Containing Alcohol: Never - Substance Use History Substance History: No History of Abuse - Substance Use Type Marijuana Status: Early Remission Route Used: By Mouth Frequency: One time Reason for Use: Calm Down Comment: Pt stated ever since he tried marijuana couple months ago he has been feeling paranoid. - Travel History Recent Travel in the [place] Within the Last 8 Weeks: No Recent Travel Out of the Country Within the Last 8 Weeks: No - Immunization History Tetanus Immunization: Never Vaccinated Hx Influenza Vaccine This Season: No Medications and Allergies Active Medications: Active Medications Acetaminophen (Tylenol) 650 mg PO Q4H PRN PRN Reason: Pain 1-5 or Temp >101F Al Hydrox/Mg Hydrox/Simethicone (Mag-Al Plus Susp Liq) 30 ml PO Q6H PRN PRN Reason: DYSPEPSIA Al Hydroxide/Mg Hydroxide (Milk Of Magnesia Liq) 30 ml PO Q12H PRN PRN Reason: Mild Constipation Diphenhydramine HCl (Benadryl) 50 mg PO HS PRN PRN Reason: INSOMNIA Last Admin: 10/27/18 21:05 Dose: 50 mg Hydroxyzine HCl (Atarax) 50 mg PO Q6H PRN PRN Reason: ANXIETY Last Admin: 10/28/18 14:51 Dose: 50 mg Allergies Allergy/AdvReac Type Severity Reaction Status Date / Time No Known Allergies Allergy Verified 10/22/18 20:36 Home Medications Medication Instructions Recorded Confirmed Type No Known Home Medications 10/23/18 10/26/18 History Physical Exam Vital signs: Vital Signs 10/28/18 05:45 10/28/18 18:18 Temperature 99.2 F 100 F H Pulse Rate 105 H 87 Respiratory Rate 18 20 Blood Pressure 154/93 H 151/95 H Pulse Oximetry 95 100 Intake & Output 10/27/18 10/28/18 10/28/18 18:59 06:59 18:59 Intake Total 480 / 480 Balance 480 / 480 Weight 92 kg Intake: Oral 480 / 480 Other: Weight On Admission 92 kg Narrative: GENERAL: Well-nourished, well-developed 27-year-old male. SKIN: No rash noted to chest, 2 pinpoint areas to right chest wall. HEAD: Atraumatic. Normocephalic. EYES: Pupils equal and round. No scleral icterus. No injection or drainage. ENT: No nasal bleeding or discharge. Mucous membranes pink and moist. NECK: Trachea midline. No JVD. CARDIOVASCULAR: Regular rate and rhythm. RESPIRATORY: No accessory muscle use. Clear to auscultation. Breath sounds equal bilaterally. MUSCULOSKELETAL: Extremities without clubbing, cyanosis, or edema. No obvious deformities. NEUROLOGICAL: pt. is awake, oriented to self, doesn't want to answer many questions. Able to get up and ambulate without any difficulties, gait steady. No tremors noted. Speech clear. No facial asymmetry. No nuchal rigidity elicited. PSYCHIATRIC: Disorganized, poor insight. Results - Labs CBC & Chem 7: 10/29/18 00:45 10/29/18 00:45 Labs: Laboratory Results - last 24 hr 10/28/18 07:50 Sodium 139 Potassium 3.6 Chloride 103 Carbon Dioxide 26.9 Anion Gap 9 BUN 12 Creatinine 1.04 Estimated GFR Greater than 89 Random Glucose 115 H Calcium 9.8 Triglycerides 51 Cholesterol 119 L LDL Cholesterol, Calc 65 HDL Cholesterol 43.7 Cholesterol/HDL Ratio 2.72 Assessment and Plan - Plan 27-year-old male with no significant past medical history, admitted to inpatient psychiatric services for psychosis, suicidal ideation, anxiety. Patient was started on Seroquel. Today, patient was noted with unsteady gait, tremors, facial twitching, tachycardia and rash. Symptoms have now resolved. Hospital services are requested to assist with medical management. Psychosis, etiology unclear, no prior history of psychiatric illnesses Anxiety Continue with psychiatric management Seroquel has been put on hold as this may have caused allergic reaction vs EPS Sudden change in neurological status including impaired gait, tremors, facial twitching, pinpoint rash to chest area, tachycardia with elevated temperature 99.2. Unclear if symptoms are due to allergic reaction to Seroquel, received 2 doses since 10/27. Possible EPS is another possibility Report of headache, although pt. denies now -Recommend to discontinue Seroquel for now -Continue to monitor neuro checks -will check TSH, B12, RPR -CT of head if pt. cooperates Thank you for this consultation, will continue to follow patient. Code Status: Full Discussed Condition With: Alexy Briseno APRN, nephrologist Planning: Per psych
[2018-10-28 20:11] LABS: Vitamin B12 549 pg/mL (193-986)
[2018-10-28] MEDS ORDERED: QUEtiapine 25 MG Tablet PO SCH (21:00)
[2018-10-28] MEDS: Acetaminophen 325 MG Tablet PO PRN (23:46)
[2018-10-29 00:58] LABS: Baso # (Auto) 0.1 th/mm3 (0.0-0.2); Baso % (Auto) 0.5 % (0.0-2.0); Eos % (Auto) 0.1 % (0.0-4.0); Hematocrit 43.3 % (39.0-51.0); Lymph # (Auto) 2.1 th/mm3 (1.0-4.8); Lymph % (Auto) 15.5 % (9.0-44.0); Mean Corpuscular HGB Conc 34.6 % (32.0-36.0); Mean Corpuscular Hemoglobin 30.8 pg (27.0-34.0); Mean Corpuscular Volume 89.1 fL (80.0-100.0); Mean Platelet Volume 8.1 fL (7.0-11.0); Mono # (Auto) 1.2 th/mm3 (0.0-0.9); Mono % (Auto) 8.8 % (0.0-8.0); Neut # (Auto) 10.4 th/mm3 (1.8-7.7); Neut % (Auto) 75.1 % (16.0-70.0); Platelet Count 307 th/mm3 (150-450); Red Blood Count 4.86 mil/mm3 (4.50-5.90); Red Cell Distribution Width 13.1 % (11.6-17.2); White Blood Count 13.8 th/mm3 (4.0-11.0)
[2018-10-29 01:11] LABS: Alanine Aminotransferase 35 U/L (12-78); Albumin 4.6 g/dL (3.4-5.0); Anion Gap 8 meq/L (5-15); Aspartate Aminotransferase 33 U/L (15-37); Blood Urea Nitrogen 12 mg/dL (7-18); Calcium 9.2 mg/dL (8.5-10.1); Carbon Dioxide 27.3 meq/L (21.0-32.0); Chloride 104 meq/L (98-107); Glomerular Filtration Rate Greater Than 89 mL/min (>89); Glucose,Random 84 mg/dL (74-106); Potassium 3.7 meq/L (3.5-5.1); Sodium 139 meq/L (136-145)
[2018-10-29 01:14] LABS: Alkaline Phosphatase 72 U/L (45-117); Total Protein 8.6 g/dL (6.4-8.2); Troponin I 0.02 ng/mL (0.02-0.05)
--- NOTE | 2018-10-29 01:35 | CT ---
EXAM DATE: 10/29/2018 1:30 AM EST AGE/SEX: 27 years / Male INDICATIONS: Altered mental status. CLINICAL DATA: This is the patient's initial encounter. Patient reports that signs and symptoms have been present for 1 day and indicates a pain score of Nonresponsive. MEDICAL/SURGICAL HISTORY: None. None. RADIATION DOSE: 66.34 CTDI (mGy) COMPARISON: No prior exams available for comparison. TECHNIQUE: CT of the head without contrast. Using automated exposure control and adjustment of the mA and/or kV according to patient size, radiation dose was kept as low as reasonably achievable to ob tain optimal diagnostic quality images. DICOM format image data is available electronically for revi ew and comparison. FINDINGS: Cerebrum: The ventricles are normal for age. No evidence of midline shift, mass lesion, hemorrhage or acute infarction. No extraaxial fluid collections are seen. Posterior Fossa: The cerebellum and brainstem are intact. The 4th ventricle is midline. The cerebe llopontine angle is unremarkable. Extracranial: The visualized portion of the orbits is intact. Skull: The calvaria is intact. No evidence of skull fracture. CONCLUSION: Negative noncontrast head CT. . Electronically signed by: Jose David Marie MD Board Certified Radiologist 10/29/2018 1:34 AM EST
[2018-10-29] MEDS ORDERED: Sodium Chlor 0.9% Inj 500 ML IV.SIG SCH (02:00)
--- NOTE | 2018-10-29 02:11 | P.PNIM ---
Subjective Interval history: Yesterday, a STAT consult was placed to the hospitalist group because the patient was noted with unsteady gait, tremors, facial twitching, tachycardia and rash. Symptoms spontaneously resolved. A Halicat was called around midnight because the patient's symptoms resumed with facial twitching and tremors along with tachycardia up to 133 bpm. Patient also had a temperature of 99.9. The patient was transferred to the medical psychiatric unit for further observation and management. Patient is observed on in room security camera moving all extremities well and resting comfortably. When I went to evaluate him, he complained of pain all over and inability to move. He was not very cooperative with answering questions and perseverated over wanting to watch the news. When CNN was turned on, he asked for [employer]. He also repetitively asked to be able to call his "girl ". Physical Exam Vital signs: Last Vital Signs Temp 99.9 F H 10/28/18 23:23 Pulse 125 H 10/28/18 23:23 Resp 18 10/28/18 23:23 BP 143/103 H 10/28/18 23:23 Pulse Ox 97 10/28/18 23:25 Intake & Output 10/26/18 10/27/18 10/28/18 10/29/18 06:59 06:59 06:59 06:59 Intake Total 480 / 480 Balance 480 / 480 Weight 79.832 kg 92 kg Narrative: GENERAL: Well-nourished, well-developed 27-year-old male complaining of pain "all over my body". SKIN: No rash noted to chest, 2 pinpoint areas to right chest wall. HEAD: Atraumatic. Normocephalic. EYES: Pupils equal and round. No scleral icterus. No injection or drainage. ENT: No nasal bleeding or discharge. Mucous membranes pink and moist. NECK: Trachea midline. No JVD. CARDIOVASCULAR: Regular rate and rhythm. RESPIRATORY: No accessory muscle use. Clear to auscultation. Breath sounds equal bilaterally. MUSCULOSKELETAL: Extremities without clubbing, cyanosis, or edema. No obvious deformities. NEUROLOGICAL: pt. is awake, oriented to self, doesn't want to answer many questions. No weakness noted. No tremors noted. No facial asymmetry. No nuchal rigidity elicited. PSYCHIATRIC: Disorganized, poor insight. Perseverative thoughts. Results Labs CBC & Chem 7: 10/29/18 00:45 10/29/18 00:45 Imaging Imaging: Impressions Head CT 10/29/18 00:00 CONCLUSION: Negative noncontrast head CT. . Assessment and Plan (1) Unspecified psychosis: Code(s): F29 - Unspecified psychosis not due to a substance or known physiological condition Status: Acute Plan Mr. Cheyenne Quinn is a 27-year-old male with no significant past medical history who was admitted to inpatient psychiatric services for psychosis, suicidal ideation, and anxiety. Patient was started on Seroquel. Yesterday, the patient was noted with unsteady gait, tremors, facial twitching, tachycardia and rash. Symptoms spontaneously resolved. A Halicat was called because patient's symptoms resumed this evening with facial twitching and tremors along with tachycardia up to 133 bpm. Patient also had a temperature of 99.9. The patient was transferred to the medical psychiatric unit for further observation and management. Psychosis, etiology unclear, no prior history of psychiatric illnesses. Anxiety Continue with psychiatric management Seroquel on hold for concern of allergic reaction Altered Mental Status Again, the patient has had a sudden change in neurological status including tremors, facial twitching, pain "all over "his body, and tachycardia with elevated temperature 99.9. Possible EPS Possible behavioral/psychiatric component -Agree regarding discontinuing Seroquel -Continue to monitor neuro checks -Will check TSH, B12, RPR with STAT labs -CT of head STAT - will give Ativan 1 mg IV as he is not cooperative at the time of my examination -check STAT CMP to evaluate organ function and electrolytes as possible causative/contributing factors Elevated temperature 99.9, Tachycardia, Myalgias -IVF bolus with NS at 500 cc/hr followed by maintenance dose at 125 cc/hr -Will check blood cultures - follow results -check STAT CBC to evaluate for infection/anemia (as possible causative/ contributing factors for AMS) -Check for Flu A and B -No nuchal rigidity on exam Chest pain vs Myalgias -psychiatric nurses report patient complaining of chest pain but he reports diffuse body pain when I evaluate him -will check another Troponin I -r/o influenza a/b Progress Note: Quality VTE Deep Vein Thrombosis/Pulmonary Embolism Present on Admission: No _ (1) Unspecified psychosis Qualifiers: Psychosis type: Schizoaffective disorder type: Schizophrenia type:
[2018-10-29] MEDS: Sod Chloride 0.9% Inj 1,000 ML IV.CONT SCH ×2 (02:54→09:17)
[2018-10-29 03:22] LABS: Thyroid Stimulating Hormone 3.28 uIU/mL (0.358-3.740)
--- NOTE | 2018-10-29 11:43 | P.PN ---
Subjective Interval history: follow up for elevated heart rate, change in mental status, tremors: Events of nightshift reviewed. Hellicat called again due to pt noted with elevated HR, BP, temp 99.9. Per RN, prior to this episode pt. was observed masturbating in day room. Vitals were taken after. Today, pt.has been talking, ambulating, removing his IVF from PIV. Inappropriate sexual comments made to RN this morning during assessment. Pt. seen and examined with RN and psychology associate at [facility]. He is sleeping, awakes to voice, refusing to speak. States he doesn't know his name and will not answer any questions. No tremors noted, VSS. Per RN, has been talking to brother on the phone. Physical Exam Vital signs: Vital Signs 10/28/18 18:18 10/28/18 23:23 10/28/18 23:25 Temperature 100 F H 99.9 F H Pulse Rate 87 125 H Respiratory Rate 20 18 Blood Pressure 151/95 H 143/103 H Pulse Oximetry 100 97 10/29/18 06:22 Temperature 97.7 F Pulse Rate 80 Respiratory Rate 18 Blood Pressure 140/65 Pulse Oximetry 98 Intake & Output 10/28/18 10/29/18 10/29/18 18:59 06:59 18:59 Intake Total 500 / 500 1000 / 1000 Balance 500 / 500 1000 / 1000 Intake: IV 500 / 500 1000 / 1000 NS Inj 1,000 ML @ 125 mls/hr IV 1000 / 1000 .CONT .Q8H PADMINI Rx#:[id number] NS Inj 500 ML @ 1000 mls/hr IV. 500 / 500 SIG BOLUS PADMINI Rx#:[id number] Narrative: GENERAL: Well-nourished, well-developed 27-year-old male. SKIN: no rash noted, chest wall skin is mildly erythematous. No raised rash noted. HEAD: Atraumatic. Normocephalic. EYES: Pupils equal and round. No scleral icterus. No injection or drainage. ENT: No nasal bleeding or discharge. Mucous membranes pink and moist. NECK: Trachea midline. No JVD. CARDIOVASCULAR: Regular rate and rhythm. RESPIRATORY: No accessory muscle use. Clear to auscultation. Breath sounds equal bilaterally. MUSCULOSKELETAL: Extremities without clubbing, cyanosis, or edema. No obvious deformities. NEUROLOGICAL:Awakes to voice, refusing to answer questions, no focal deficits. PSYCHIATRIC: Disorganized, poor insight. Results - Labs CBC & Chem 7: 10/29/18 00:45 10/29/18 00:45 Laboratory Results - last 24 hr 10/28/18 10/28/18 10/29/18 07:50 07:50 00:45 WBC 13.8 H RBC 4.86 Hgb 15.0 Hct 43.3 MCV 89.1 MCH 30.8 MCHC 34.6 RDW 13.1 Plt Count 307 MPV 8.1 Neut % (Auto) 75.1 H Lymph % (Auto) 15.5 [place] % (Auto) 8.8 H Eos % (Auto) 0.1 Baso % (Auto) 0.5 Neut # (Auto) 10.4 H Lymph # (Auto) 2.1 [place] # (Auto) 1.2 H Eos # (Auto) 0.0 Baso # (Auto) 0.1 WBC Differential . Differential Comment Auto diff final Sodium 139 Potassium 3.6 Chloride 103 Carbon Dioxide 26.9 Anion Gap 9 BUN 12 Creatinine 1.04 Estimated GFR Greater than 89 Random Glucose 115 H Calcium 9.8 Total Bilirubin AST ALT Alkaline Phosphatase Troponin I Total Protein Albumin Triglycerides 51 Cholesterol 119 L LDL Cholesterol, Calc 65 HDL Cholesterol 43.7 Cholesterol/HDL Ratio 2.72 Vitamin B12 549 Cancelled TSH 2.560 Cancelled 10/29/18 10/29/18 00:45 00:45 WBC RBC Hgb Hct MCV MCH MCHC RDW Plt Count MPV Neut % (Auto) Lymph % (Auto) [place] % (Auto) Eos % (Auto) Baso % (Auto) Neut # (Auto) Lymph # (Auto) [place] # (Auto) Eos # (Auto) Baso # (Auto) WBC Differential Differential Comment Sodium 139 Potassium 3.7 Chloride 104 Carbon Dioxide 27.3 Anion Gap 8 BUN 12 Creatinine 1.18 Estimated GFR Greater than 89 Random Glucose 84 Calcium 9.2 Total Bilirubin 0.6 AST 33 ALT 35 Alkaline Phosphatase 72 Troponin I 0.02 Total Protein 8.6 H Albumin 4.6 Triglycerides Cholesterol LDL Cholesterol, Calc HDL Cholesterol Cholesterol/HDL Ratio Vitamin B12 530 TSH 3.280 Microbiology 10/29/18 02:30 Nasal Wash Influenza Types A,B Antigen - Final Negative for FLU A and B antigen Infection due to influenza A or B cannot be ruled out since the antigen present in the sample may be below the detection limit of the test. - Imaging Impressions Head CT 10/29/18 00:00 CONCLUSION: Negative noncontrast head CT. . Assessment and Plan - Plan 27-year-old male with no significant past medical history, admitted to inpatient psychiatric services for psychosis, suicidal ideation, anxiety. Patient was started on Seroquel. Today, patient was noted with unsteady gait, tremors, facial twitching, tachycardia and rash. Symptoms have now resolved. Hospital services are requested to assist with medical management. Psychosis, etiology unclear, no prior history of psychiatric illnesses Anxiety Continue with psychiatric management Seroquel has been put on hold as this may have caused allergic reaction vs EPS on 10/28 Sudden change in neurological status including impaired gait, tremors, facial twitching, pinpoint rash to chest area, tachycardia with elevated temperature 99.2. Unclear if symptoms are due to allergic reaction to Seroquel, received 2 doses since 10/27. Possible EPS is another possibility reported headache at midnight, Halicat called, pt. noted with HR 130s, Temp 99.9. Per RN and nursing documentation. Pt. had been masturbating prior to event. He was transferred to [facility] psych. Sepsis work up done, IVF bolus given and started on NS at 125/hr -recommend to continue holding Seroquel -Continue to monitor neuro checks -CT head negative -TSH and B12 okay, RPR pending -labs reviewed, mild leukocytosis, UA negative for infection. Negative Flu test. -Taking PO well, will dc IVF. -reported chest pain, myalgias-trop negative. -Pt. has been sexually inappropriate with female staff (RN) today, he has been ambulating, eating and drinking well. Refused to answer my questions. -Will dc IVFs -mild splotchy areas noted to chest wall, no raised rash. Continue with Benadryl PRN -Pt. can go back to main psych tomorrow. -doubt this if infectious process, poss behavioral, psychotic. will continue to follow. Code Status: Full code Discussed Condition With: RN, pt Discharge Planning: Per psych
[2018-10-29 12:25] LABS: Hemoglobin A1c 5.8 % (4.3-6.0)
--- NOTE | 2018-10-29 20:13 | P.PNPSY ---
Subjective Remarks: Reviewed electronic medical records and discussed case with staff. Follow-up was conducted in the patient's room with SERVANDO Silva present. His nurse reports that he was sexually inappropriate with her today. Additionally, she reports that he has not been cooperative with medical staff or psychiatric staff throughout the day. However, he has come out of his room multiple occasions and carried on normal conversations with his girlfriend on the phone. When the patient was asked why he was being sexually inappropriate with staff and masturbating in the day room last night he quickly finds his voice. He accuses this provider and the staff of not believing him and not wanting to help him. He relates that he is upset with his family for going on vacation and giving him various answers as to when they are returning. He complains about how the Ativan made him feel after he woke up today. He is very evasive and vague when asked to identify specific symptoms that he would like to be resolved. He at one point attempts to describe an auditory hallucination but then reports that it was a dream he woke from. When asked if he has had thoughts of harming himself since being here he asked, "appear her downstairs". When asked about either place he shrugs and says "yeah". Is very oppositional and seems extremely behavioral at this point. When I asked him how the Seroquel worked for him he responded, "yes, it were good I felt really chill". So when I discussed restarting him on it he rolls his eyes and makes noise. When asked why he was reacting this way he states, "I do better when I am not on any medications". He perseverates on his perceived lack of concern on the parts of the providers. He complains that he keeps being asked about symptoms however, he remains very vague. At one point when asked what help he feels he needs he states, "I don't know you are the one that has the degree". He is resistant to care from both medical and psychiatric side. When he does deem to communicate with staff he is dismissive and oppositional. At this point his actions would appear to be more personality disorder traits. I did note that the redness is still present on his upper chest. At this time I am hesitant to reestablish him on any medications. Mental Status Examination Appearance: Appropriate Consciousness: Alert Orientation: Person, Place, Date/Time Motor Activity: Normal gait Speech: Unremarkable Language: Adequate Fund of Knowledge: Inadequate Attention and Concentration: Inadequate Memory: Impaired Mood: Sad, Anxious Affect: Sad, Anxious Thought Process & Associations: Intact Thought Content: Hallucinations Hallucination Type: Auditory Delusion Type: Paranoid, Other (Respiratory) Suicidal Ideation: Yes Suicidal Plan: No Suicidal Intention: No Homicidal Ideation: Yes Homicidal Plan: No Homicidal Intention: No Insight: Poor Judgment: Impulsive Assessment and Plan - Assessment (1) Unspecified psychosis Code(s): F29 - Unspecified psychosis not due to a substance or known physiological condition Status: Acute - Plan Plan: Patient will be reevaluated by the attending psychiatrist. Continue with current treatment plan. It is difficult to formulate a treatment plan due to the patient's behavioral nature. He continues to remain extremely vague about his symptoms and refuses to communicate an appropriate manner. He is oppositional and at times inappropriate. Justification for Continued Inpatient Stay: Moving this patient to a less restrictive environment would likely result in decompensation.
--- NOTE | 2018-10-30 09:11 | P.PN ---
Subjective Interval history: follow up for elevated heart rate, change in mental status, tremors: pt. seen and examined, he has been ambulating and talking. Initially would not answer my questions, while he looked over his breakfast. CNAs at [facility]. Updated him on negative lab and imaging findings. Pt. finally spoke as I was leaving, wanted to ask about my specialty. I attempted to inquire if he had any pain, sob, tremors. He started eating. Physical Exam Vital signs: Vital Signs 10/29/18 13:23 10/29/18 18:30 10/30/18 06:00 Temperature 97.8 F 97.9 F Pulse Rate 80 77 92 H Respiratory Rate 18 19 Blood Pressure 143/78 H 137/75 153/82 H Pulse Oximetry 97 98 Intake & Output 10/29/18 10/30/18 10/30/18 18:59 06:59 18:59 Intake Total 1600 / 1600 720 / 720 Output Total 500 / 500 Balance 1600 / 1600 220 / 220 Weight 92.3 kg Intake: IV 1000 / 1000 NS Inj 1,000 ML @ 125 mls/hr IV 1000 / 1000 .CONT .Q8H PADMINI Rx#:[id number] Oral 600 / 600 720 / 720 Output: Urine 500 / 500 Other: # Voids 2 2 Narrative: GENERAL: Well-nourished, well-developed 27-year-old male. SKIN: no rash noted. HEAD: Atraumatic. Normocephalic. EYES: Pupils equal and round. No scleral icterus. No injection or drainage. ENT: No nasal bleeding or discharge. Mucous membranes pink and moist. NECK: Trachea midline. No JVD. CARDIOVASCULAR: Regular rate and rhythm. RESPIRATORY: No accessory muscle use. Clear to auscultation. Breath sounds equal bilaterally. MUSCULOSKELETAL: Extremities without clubbing, cyanosis, or edema. No obvious deformities. NEUROLOGICAL: Awake, refuses to answer orientation questions. PSYCHIATRIC: poor judgment Results - Labs CBC & Chem 7: 10/29/18 00:45 10/29/18 00:45 Laboratory Results - last 24 hr 10/28/18 07:50 Hemoglobin A1c 5.8 Assessment and Plan - Plan 27-year-old male with no significant past medical history, admitted to inpatient psychiatric services for psychosis, suicidal ideation, anxiety. Patient was started on Seroquel. Today, patient was noted with unsteady gait, tremors, facial twitching, tachycardia and rash. Symptoms have now resolved. Hospital services are requested to assist with medical management. Psychosis, etiology unclear, no prior history of psychiatric illnesses Anxiety Continue with psychiatric management Seroquel has been put on hold as this may have caused allergic reaction vs EPS on 10/28 Sudden change in neurological status including impaired gait, tremors, facial twitching, pinpoint rash to chest area, tachycardia with elevated temperature 99.2. Unclear if symptoms are due to allergic reaction to Seroquel, received 2 doses since 10/27. Possible EPS is another possibility reported headache at midnight, Halicat called, pt. noted with HR 130s, Temp 99.9. Per RN and nursing documentation. Pt. had been masturbating prior to event. He was transferred to [facility]. Sepsis work up done, IVF bolus given and started on NS at 125/hr -recommend to continue holding Seroquel -neuro checks stable. -CT head negative -TSH and B12 okay, RPR pending -No evidence of infection, neg flu, BC neg. UA neg. -Taking PO well, off IVF now -reported chest pain, myalgias-trop negative. -Pt. was sexually inappropriate with female staff (RN) -No rash noted. However, continue holding Seroquel No evidence of infection, no evidence of seizures. Pt. stable to go back to psych Will sign off for now, reconsult if needed. Code Status: Full code Discussed Condition With: RN, pt Discharge Planning: Per psych
--- NOTE | 2018-10-30 15:32 | P.PNPSY ---
Subjective Chief Complaint: Follow-up for disorganized behavior and suicidal ideation Remarks: Patient seen for follow-up, chart reviewed, patient discussed with nursing staff ; we reviewed the patient's mood, thoughts, and behaviors from overnight and this morning. Nursing reports the patient continues to act in bizarre ways, such as staring blankly at the nurses sitting in the the nurses station, or requesting help finding the bathroom but then when they leave him to the bathroom he walks away, or asking for water or food and snacks and then when they bring into room he acts confused about the request. The patient has not endorsed any suicidal or homicidal ideations and he currently is not endorsing any auditory or visual hallucinations but does seem to be responding to internal stimuli at times. The patient was seen on the unit after lunch where he was on the phone but it was not clear whether or not he was talking to anyone. When he was off the phone he was approached and asked if he would be willing to speak to the psychiatrist which initially he said no indicating that he was feeling overwhelmed and needed to get back on the phone. He was observed to go back to the phone but no one apparently answered and he did not speak any words. When the patient did engage with the provider his eye movements were erratic and scattered darting back and forth but when he was observed on the phone from afar there is no indication of any rapid eye movements. The patient was clutching at his head with both hands at the psychiatrist asked about his mood as well as physical discomfort. He also seemed to be squinting in pain. When asked about pain he pointed to his abdomen but would not give specific answers as to the quality or location of his pain. The patient would walk away from the provider and then stop and come back and he did this number of times before asking that the provider come back tomorrow to talk to him. Review of Systems unobtainable due to mental status Mental Status Examination Appearance: Appropriate Consciousness: Alert, Highly distractible Orientation: Person, Place Motor Activity: Normal gait, Other (Observed to be pacing on the unit) Speech: Hesitant Language: Adequate Fund of Knowledge: Inadequate Attention and Concentration: Inadequate Memory: Impaired Mood: Other (Patient would not report specific mood) Affect: Other (Patient appeared to be in distress) Thought Process & Associations: Disorganized, Tangential Thought Content: Thought blocking (Possible) Hallucination Type: None (Patient denied on exam today) Delusion Type: None Suicidal Ideation: No Suicidal Plan: No Suicidal Intention: No Homicidal Ideation: No Homicidal Plan: No Homicidal Intention: No Insight: Poor Judgment: Poor Assessment and Plan - Assessment (1) Unspecified psychosis Code(s): F29 - Unspecified psychosis not due to a substance or known physiological condition Status: Acute - Plan Plan: 10/30/2018: Fair response to treatment; the patient continues to behave in a disorganized and sometimes disinhibited manner, but his thought processes are also significant for what seems to be severely impaired concentration with distractibility and disorientation. As for psychosis, the patient's presentation is atypical as he has more of a waxing and waning presentation with with reports at times of him seemingly very lucid and able to appropriately discuss his presentation but at other times he seems very confused and tangential and in physical distress. Initial attempts to treat with antipsychotics resulted and adverse reactions therefore alternative treatments have been delayed. The initial medical workup has been negative for any metabolic or infectious cause of his mental status changes however the patient's recurrent complaints of headaches and his waxing and waning presentation is consistent with an encephalopathy and further workup with lumbar puncture and CSF studies was discussed with the hospitalist and will be attempted. Continue on inpatient psychiatric unit for stabilization and treatment. Differential diagnosis includes brief psychotic disorder order, psychosis due to hallucinogen abuse, complex bereavement, encephalitis, factitious disorder. Justification for Continued Inpatient Stay: Patient remains an elevated risk for self-harm by self neglect and will require further inpatient stabilization and preparation of a safe discharge plan. Moving patient to a less restrictive environment at this time may result in decompensation.
[2018-10-31 12:24] LABS: Hematocrit 42.5 % (39.0-51.0); Hemoglobin 14.8 gm/dL (13.0-17.0); Mean Corpuscular HGB Conc 34.8 % (32.0-36.0); Mean Corpuscular Hemoglobin 31.1 pg (27.0-34.0); Mean Corpuscular Volume 89.4 fL (80.0-100.0); Mean Platelet Volume 8.6 fL (7.0-11.0); Platelet Count 328 th/mm3 (150-450); Red Blood Count 4.75 mil/mm3 (4.50-5.90); Red Cell Distribution Width 12.7 % (11.6-17.2); White Blood Count 11.6 th/mm3 (4.0-11.0)
[2018-10-31 12:37] LABS: INR 1.2 Ratio; Prothrombin Time 11.7 sec (9.8-11.6)
--- NOTE | 2018-10-31 16:11 | P.PNPSY ---
Subjective Chief Complaint: Follow-up for disorganized behavior and suicidal ideation Remarks: Patient seen for follow-up, chart reviewed, patient discussed with nursing staff ; we reviewed the patient's mood, thoughts, and behaviors from overnight and this morning. Nurse reports the patient refused neurologic workup and he continues to refuse treatment therefore he was sent back to the [address] this morning. The patient was seen lying in bed after lunch. He was cooperative with interview and less evasive or guarded than he was yesterday. He did not seem to be in any pain or physical distress. He admits to continued episodes of confusion and as he is making these statements he pauses and seems to be having difficulty in finding the words or perhaps having thought blocking. He acknowledges that he came to the hospital seeking help for his mental status changes but when he was confronted about his lack of cooperation with recent tests he started to perseverate on his blood tests which he has been told were negative but he continued to ask about those results and became frustrated with the answer that they were negative and neurologic testing would be needed to further evaluate his waxing and waning mental status. The patient denied any auditory or visual hallucinations. He denied any homicidal or suicidal ideations. Review of Systems Constitutional: Reports headache(s) (But none currently) Eyes: Reports blurry vision (But none currently) Mental Status Examination Appearance: Appropriate Consciousness: Alert, Highly distractible Orientation: Person, Place Motor Activity: Normal gait, Other (Observed to be pacing on the unit) Speech: Hesitant Language: Adequate Fund of Knowledge: Inadequate Attention and Concentration: Inadequate Memory: Impaired Mood: Other (Patient would not report specific mood) Affect: Other (Patient appeared to be in distress) Thought Process & Associations: Disorganized, Tangential Thought Content: Thought blocking (Possible) Hallucination Type: None (Patient denied on exam today) Delusion Type: None Suicidal Ideation: No Suicidal Plan: No Suicidal Intention: No Homicidal Ideation: No Homicidal Plan: No Homicidal Intention: No Insight: Poor Judgment: Poor Assessment and Plan - Assessment (1) Unspecified psychosis Code(s): F29 - Unspecified psychosis not due to a substance or known physiological condition Status: Acute - Plan Plan: 10/30/2018: Fair response to treatment; the patient continues to behave in a disorganized and sometimes disinhibited manner, but his thought processes are also significant for what seems to be severely impaired concentration with distractibility and disorientation. As for psychosis, the patient's presentation is atypical as he has more of a waxing and waning presentation with with reports at times of him seemingly very lucid and able to appropriately discuss his presentation but at other times he seems very confused and tangential and in physical distress. Initial attempts to treat with antipsychotics resulted and adverse reactions therefore alternative treatments have been delayed. The initial medical workup has been negative for any metabolic or infectious cause of his mental status changes however the patient's recurrent complaints of headaches and his waxing and waning presentation is consistent with an encephalopathy and further workup with lumbar puncture and CSF studies was discussed with the hospitalist and will be attempted. Continue on inpatient psychiatric unit for stabilization and treatment. Differential diagnosis includes brief psychotic disorder order, psychosis due to hallucinogen abuse, complex bereavement, encephalitis, factitious disorder. 10/31/2018: Unsatisfactory response to treatment; the patient continues to demonstrate a waxing and waning mental status but it is atypical from a delirium due to medical conditions and his medical workup thus far would indicate that the only feasible organic cause would be encephalitis but the patient is refusing the diagnostic workup necessary to rule that in or out. The patient is also refusing treatment with antipsychotics that may help with the recovery of his disorganized mental state but they will not be forced upon him because he has been generally cooperative and appropriate on the unit. Recommend continued inpatient psychiatric observation with routine vital signs and neuro check, for the purpose of determining whether the patient's altered mental status is organic versus psychosomatic or combination of both. Discharge planning: If the patient continues to be stable in his physical as cognitive presentation then he would be appropriate for discharge to a lower level of care for continued observation and management. Justification for Continued Inpatient Stay: Patient remains an elevated risk for self-harm by self neglect and will require further inpatient stabilization and preparation of a safe discharge plan. Moving patient to a less restrictive environment at this time may result in decompensation.
[2018-11-01] MEDS: Acetaminophen 325 MG Tablet PO PRN ×2 (10:12→16:25)
--- NOTE | 2018-11-01 10:30 | P.PNPSY ---
Subjective Chief Complaint: Follow-up for disorganized behavior and suicidal ideation Remarks: Patient seen for follow up; chart reviewed. Discussion with nursing staff reported that patient Mental Status Examination Appearance: Appropriate Consciousness: Alert, Highly distractible Orientation: Person, Place Motor Activity: Normal gait, Other (Observed to be pacing on the unit) Speech: Hesitant Language: Adequate Fund of Knowledge: Inadequate Attention and Concentration: Inadequate Memory: Impaired Mood: Other (Patient would not report specific mood) Affect: Other (Patient appeared to be in distress) Thought Process & Associations: Disorganized, Tangential Thought Content: Thought blocking (Possible) Hallucination Type: None (Patient denied on exam today) Delusion Type: None Suicidal Ideation: No Suicidal Plan: No Suicidal Intention: No Homicidal Ideation: No Homicidal Plan: No Homicidal Intention: No Insight: Poor Judgment: Poor Assessment and Plan - Assessment (1) Unspecified psychosis Code(s): F29 - Unspecified psychosis not due to a substance or known physiological condition Status: Acute
--- NOTE | 2018-11-01 10:35 | P.RAD ---
Post Procedure Progress Note - Procedure Information Procedure Date: 11/01/18 Supervising Radiologist: Saul Shelby MD Estimated blood loss (mL): 0 Anesthesia: Local - Plan of Activity Patient to Unit: Nursing Unit Patient Condition: Good See PACS Report for procedural detail/treatment.
--- NOTE | 2018-11-01 10:45 | IR ---
EXAM DATE: 11/01/2018 10:00 AM EST AGE/SEX: 27 years / Male INDICATIONS: Patient presents with headaches and change in mental status in need of lumbar puncture for further evaluation. CLINICAL DATA: This is the patient's initial encounter. Patient reports that signs and symptoms have been present for 4 - 6 days and indicates a pain score of 0/10. MEDICAL/SURGICAL HISTORY: None. None. COMPARISON: No prior exams available for comparison. FLUORO TIME (min): 0.2 IMAGE SERIES: 2 RADIATION DOSE: 8.1 mGy ACCESS SITE: L3-4 LUMBAR PUNCTURE TIME: 09:26 hours OPENING PRESSURE: 13 cm of water CLOSING PRESSURE: not requested FLUID: Total volume of 10.75 cc of clear fluid was removed. Fluid was sent to lab for ordered studies . ; . . PROCEDURE: 1. Fluoroscopic guided lumbar puncture. The risks, benefits and alternatives to the procedure were explained and verbal and written consent w as obtained. The site was prepped in sterile fashion. Full sterile technique was used, including ca p, mask, sterile gloves and gown and a large sterile sheet. Hand hygiene and 2% chlorhexidine and/or betadine/alcohol prep was utilized per protocol for cutaneous antisepsis. The skin and subcutaneous tissues were infiltrated with local anesthetic solution. With fluoroscopic guidance the lumbar thecal sac was punctured at the level above. The fluid describ ed above was removed without difficulty. The patient tolerated the procedure well and there were no complications. CONCLUSION: 1. Uncomplicated fluoroscopically guided lumbar puncture. Electronically signed by: Saul Shelby MD Board Certified Radiologist 11/01/2018 10:44 AM EST
[2018-11-01 11:37] LABS: Total Protein,CSF 40.4 mg/dL (15.0-45.0)
[2018-11-01 12:22] LABS: RBC on Tube 1 0 /mm3
[2018-11-01 12:30] LABS: Lymphocytes, CSF 100 %; Neutrophils,CSF 0 %; RBC on Tube 1 0 /mm3
[2018-11-01 12:31] LABS: RBC on Tube 4 1 /mm3
--- NOTE | 2018-11-01 15:20 | P.PNPSY ---
Subjective Chief Complaint: Follow-up for disorganized behavior and suicidal ideation Remarks: Patient seen for follow-up, chart reviewed. Discussion with nursing staff reported that patient with no physical complaints until after lumbar puncture was done reporting some intermittent chest pain. Patient was found on stretcher upon returning from LP and had to be assisted back to his bed stating that he was having some muscle spasm of his left chest describing his left chest pain. Patient will be slightly irritable and somewhat disorganized at times but will low frustration tolerance when being interviewed by current symptoms. He states that he has had difficulty sleeping, decreased appetite and energy and his mood is "not good" denying any auditory hallucinations was not able to recall what his last perceptual disturbance was. He states having spoken to family at this time. Patient states that he has not received help at all that was reminded that there is medical workup that is currently being undergoing. Patient refused to continue interview stating that he does not feel like talking anymore. Review of Systems All other systems reviewed negative except as stated in HPI Mental Status Examination Appearance: Appropriate Consciousness: Alert, Highly distractible Orientation: Person, Place Motor Activity: Normal gait, Other (Observed to be pacing on the unit) Speech: Unremarkable Language: Adequate Fund of Knowledge: Inadequate Attention and Concentration: Inadequate Memory: Impaired Mood: Irritable Affect: Irritable Thought Process & Associations: Disorganized, Tangential Thought Content: Thought blocking (Possible) Hallucination Type: None (Patient denied on exam today) Delusion Type: None Suicidal Ideation: No Suicidal Plan: No Suicidal Intention: No Homicidal Ideation: No Homicidal Plan: No Homicidal Intention: No Insight: Poor Judgment: Poor Assessment and Plan - Assessment (1) Unspecified psychosis Code(s): F29 - Unspecified psychosis not due to a substance or known physiological condition Status: Acute - Plan Plan: Patient continues to have neurological workup as initially refused but has been compliant now. EEG is pending, neurology consult input pending. We will continue to refrain from starting patient on the psychotropic medications until medical workup has been completed had organic causes excluded. Patient continues to have some disorganization, continued with some irritability may benefit from psychotropic medication such as second generation antipsychotic to address possible psychosis and mood stabilization. Will defer starting this until medical causes have been ruled out. We will continue to monitor mood and behavior. Discharge planning in progress. Justification for Continued Inpatient Stay: At risk of further decompensation at lower level care.
[2018-11-01] MEDS ORDERED: Methocarbamol 500 MG Tablet PO ONE (20:00)
--- NOTE | 2018-11-02 08:36 | MG ---
cc: Bailey Knox MD EEG NUMBER: [id number]. REFERRING: JAYY Feliz. ROOM: 2711. Hyperventilation and photic stimulation done, listed as good hyperventilatory effort. CT shows nothing acute. EEG was done awake, drowsy, and asleep. Admitted with change in mental status, tachycardia, psychoses. History unknown. Currently only on Tylenol. DESCRIPTION OF RECORD: The patient has some slowing of background predominately at what looks to be a 6-7 Hz background variable. Photic stimulation shows a mild driving response. Hyperventilation is then performed without any epileptiform features. There is no attenuation. EKG looks sinus rhythm. IMPRESSION: Overall unremarkable electroencephalogram for any epileptiform features. There was some mild slowing at times maybe due to medicine effect or mild encephalopathy or sedation; but no apparent epileptiform features were noted. Clinical correlation. Bailey Knox MD DF/karen , 08:10 AM , 08:15 AM
--- NOTE | 2018-11-02 14:23 | P.PNPSY ---
Subjective Chief Complaint: Follow-up for disorganized behavior and suicidal ideation Remarks: Patient seen for follow-up, chart reviewed. Discussion with nursing staff reported that patient continues to be paranoid, disorganized, making multiple phone calls and but unclear whether he is actually dialing to talk to anyone. Patient was found in the room noted to be hypervigilant paranoid, continues to be disorganized stating that he is feeling "a little better" but to be slightly irritable, could be internally preoccupied and states that he is feeling "a little confused". Patient continues to endorse auditory hallucinations but did not elaborate stating "I do not know what". Patient was discussed of having start on a different antipsychotic particularly risperidone twice a day which he agreed. Review of Systems All other systems reviewed negative except as stated in HPI Mental Status Examination Appearance: Appropriate Consciousness: Alert, Highly distractible Orientation: Person, Place Motor Activity: Normal gait, Other (Observed to be pacing on the unit) Speech: Unremarkable Language: Adequate Fund of Knowledge: Inadequate Attention and Concentration: Inadequate Memory: Impaired Mood: Irritable Affect: Irritable Thought Process & Associations: Disorganized Thought Content: Hallucinations, Thought blocking Hallucination Type: Auditory Delusion Type: Paranoid Suicidal Ideation: No Suicidal Plan: No Suicidal Intention: No Homicidal Ideation: No Homicidal Plan: No Homicidal Intention: No Insight: Poor Judgment: Poor Assessment and Plan - Assessment (1) Unspecified psychosis Code(s): F29 - Unspecified psychosis not due to a substance or known physiological condition Status: Acute - Plan Plan: Patient continued to be disorganized, paranoid, having auditory hallucinations which patient will be started on risperidone 1 mg p.o. twice daily for psychosis. Recent EEG no significant finding, neurology consult pending. Results from recent LP pending. We will continue to monitor mood and behavior. Discharge planning in progress. Justification for Continued Inpatient Stay: At risk of further decompensation at lower level care.
--- NOTE | 2018-11-02 15:07 | P.PN ---
Subjective Interval history: Follow-up for headache, concern for encephalitis. The patient is initially seen lying in bed. He states he had a little bit of a frontal headache this morning, however currently improving. Denies any fever/chills, neck pain, chest pain, shortness of breath, or abdominal complaints. He is tolerating oral intake. The patient is later seen ambulating the hallways without difficulty, talking on the phone. Physical Exam Vital signs: Vital Signs 11/01/18 15:49 11/01/18 19:50 11/02/18 06:03 Temperature 98.6 F 98.4 F Pulse Rate 87 99 H 75 Respiratory Rate 18 20 16 Blood Pressure 130/78 132/77 137/76 Pulse Oximetry 98 100 Intake & Output 11/01/18 11/02/18 11/02/18 18:59 06:59 18:59 Weight 90.9 kg Narrative: GENERAL: Well-nourished, well-developed young male patient in [facility]. Ambulatory. SKIN: Warm and dry. No rash. HEENT: Normocephalic. Atraumatic. Pupils equal and round. Mucous membranes pink and moist. NECK: Supple. Trachea midline. Nontender. Full active ROM, can touch chin to chest without pain. CARDIOVASCULAR: Regular rate and rhythm. No murmur appreciated. RESPIRATORY: No accessory muscle use. Clear to auscultation. Breath sounds equal bilaterally. GASTROINTESTINAL: Abdomen soft, non-tender, nondistended. Normoactive bowel sounds x4. MUSCULOSKELETAL: No obvious deformities. Extremities without clubbing, cyanosis , or edema. NEUROLOGICAL: Awake and alert. No obvious cranial nerve deficits. Moving all extremities spontaneously. Normal speech. PSYCHIATRIC: insight and judgment questionable. Results - Labs CBC & Chem 7: 10/31/18 11:52 10/29/18 00:45 Laboratory Results - last 24 hr 11/01/18 11/01/18 11/01/18 09:26 09:26 09:26 CSF Albumin 24.2 CSF IgG 3.6 Serum IgG 1620 H Serum Albumin 4850 H Serum IgG/Albumin 0.3 CSF IgG/Albumin 0.15 CSF IgG Synthesis Rate 0 CSF/Serum IgG Index 0.45 CSF Herpes I DNA (PCR) Negative CSF Herpes II DNA (PCR) Negative CMV Specimen Source Csf CMV DNA Quant PCR Negative Microbiology 10/29/18 03:30 Blood - Peripheral Aerobic Blood Culture - Preliminary No growth in 4 days 10/29/18 03:30 Blood - Peripheral Anaerobic Blood Culture - Preliminary No growth in 4 days 10/29/18 00:45 Blood - Peripheral Aerobic Blood Culture - Preliminary No growth in 4 days 10/29/18 00:45 Blood - Peripheral Anaerobic Blood Culture - Preliminary No growth in 4 days 11/01/18 09:26 Lumbar Puncture Gram Stain - Final 11/01/18 09:26 Lumbar Puncture CSF Culture - Preliminary No growth in 24 hours 11/01/18 09:26 Cerebral Spinal Fluid - Lumbar Puncture Fungal Smear - Final No fungal elements seen - Imaging Chest X-Ray 10/26/18 07:56 CONCLUSION: 1. Cardiomegaly. 2. No focal infiltrate or pulmonary vascular congestion. Head CT 10/29/18 00:00 CONCLUSION: Negative noncontrast head CT. . Lumbar Puncture Fluoroscopy 11/01/18 14:07 CONCLUSION: 1. Uncomplicated fluoroscopically guided lumbar puncture. - Procedures 1/2lumbar puncture by IR Assessment and Plan - Plan 27-year-old male with no significant past medical history, admitted to inpatient psychiatric services for psychosis, suicidal ideation, anxiety. Patient was started on Seroquel. Today, patient was noted with unsteady gait, tremors, facial twitching, tachycardia and rash. Symptoms have now resolved. Hospital services are requested to assist with medical management. Psychosis, etiology unclear, no prior history of psychiatric illnesses -Continue with psychiatric management -Seroquel has been put on hold as this may have caused allergic reaction vs EPS -Currently on Risperdal Acute encephalopathy: Unclear etiology, on 10/28, patient had sudden change in neurological status including impaired gait, tremors, facial twitching, pinpoint rash to chest area, tachycardia with elevated temperature 99.2. Unclear if symptoms are due to allergic reaction to Seroquel, received 2 doses since 10/27. Possible EPS is another possibility. Reported headache, concern for encephalitis. Jimi called on 10/27, pt. noted with HR 130s, Temp 99.9. Per RN and nursing documentation. Pt. had been masturbating prior to event. He was transferred to [facility] psych. Sepsis work up done, IVF bolus given and started on NS at 125/hr -recommend to continue holding Seroquel -neuro checks stable. -CT head negative -TSH and B12 okay, RPR pending -No evidence of infection, neg flu, BC neg. UA neg. -Taking PO well, off IVF now -reported chest pain, myalgias-trop negative. -Pt. was sexually inappropriate with female staff (RN) -No rash noted. However, continue holding Seroquel -Neurology consulted, appreciate assistance -EEG reviewed and unremarkable -11/01/18 S/p Lumbar puncture by IR -Continue to monitor CSF studies, so far, unremarkable DVT Prophylaxis: patient is ambulatory
[2018-11-02 23:46] LABS: Enterovirus (PCR)Source CSF; Enterovirus RNA Qual (PCR) Negative (Negative)
--- NOTE | 2018-11-03 10:34 | P.PNPSY ---
Subjective Chief Complaint: Follow-up for disorganized behavior and suicidal ideation Remarks: Patient seen for follow-up, chart reviewed. Discussion with nursing staff reported that patient less paranoid, continues to have thought blocking patient reported feeling less paranoid and states feeling "less crazy". Patient was found lying in hospital bed noted, but superficially cooperative. Patient noted to have poor eye contact as he was laying in the bed with interview stating "not too good today", stating having slept the last evening, good appetite, no physical complaints at this time. Patient states he feels more organized in his thought process, no auditory hallucinations and less paranoia now. Patient was unable to continue to elaborate further but agreeable to a family conference call with counselor and continue discharge planning. Patient denies any adverse drug reaction for medications thus far. Review of Systems All other systems reviewed negative except as stated in HPI Mental Status Examination Appearance: Appropriate Consciousness: Alert, Highly distractible Orientation: Person, Place Motor Activity: Normal gait, Other (Observed to be pacing on the unit) Speech: Unremarkable Language: Adequate Fund of Knowledge: Inadequate Attention and Concentration: Inadequate Memory: Impaired Mood: Other ("Not too good today") Affect: Blunt Thought Process & Associations: Disorganized, Other ([place]) Thought Content: Thought blocking Hallucination Type: None Delusion Type: Paranoid (Lessening) Suicidal Ideation: No Suicidal Plan: No Suicidal Intention: No Homicidal Ideation: No Homicidal Plan: No Homicidal Intention: No Insight: Poor Judgment: Poor Assessment and Plan - Assessment (1) Unspecified psychosis Code(s): F29 - Unspecified psychosis not due to a substance or known physiological condition Status: Acute - Plan Plan: Patient this time noted to be slightly less irritable, continues to have superficially engaging in interview, reporting less paranoia but continue to be noted with thought blocking and some disorganization. We will continue current treatment. We will continue to monitor mood and behavior. Hospitalist input appreciated. We will continue to wait for final results of LP cytology. discharge planning in progress. Justification for Continued Inpatient Stay: At risk of further decompensation at lower level care.
--- NOTE | 2018-11-03 16:08 | P.PN ---
Subjective Interval history: Follow-up for psychosis, headache, concern for encephalitis. Patient is seen lying in bed, he reports his headache has improved. He denies any visual changes, photophobia, lightheadedness, nausea/vomiting, or neck pain. He has been ambulating without difficulty. He is tolerating oral intake, although he states his appetite is not the best. He reports normal bowel movements and good urine output. He has no other medical complaints at this time. Physical Exam Vital signs: Intake & Output 11/02/18 11/03/18 11/03/18 18:59 06:59 18:59 Intake Total 360 / 360 Balance 360 / 360 Intake: Oral 360 / 360 Narrative: GENERAL: Well-nourished, well-developed young male patient in [facility]. Ambulatory. SKIN: Warm and dry. No rash. HEENT: Normocephalic. Atraumatic. Pupils equal and round. Mucous membranes pink and moist. NECK: Supple. Trachea midline. Nontender. Full active ROM, can touch chin to chest without pain. CARDIOVASCULAR: Regular rate and rhythm. No murmur appreciated. RESPIRATORY: No accessory muscle use. Clear to auscultation. Breath sounds equal bilaterally. GASTROINTESTINAL: Abdomen soft, non-tender, nondistended. Normoactive bowel sounds x4. MUSCULOSKELETAL: No obvious deformities. Extremities without clubbing, cyanosis , or edema. NEUROLOGICAL: Awake and alert. No obvious cranial nerve deficits. Moving all extremities spontaneously. Normal speech. PSYCHIATRIC: insight and judgment questionable. Results - Labs CBC & Chem 7: 10/31/18 11:52 10/29/18 00:45 Laboratory Results - last 24 hr 11/01/18 11/01/18 11/01/18 09:26 09:26 09:26 Ser Oligoclonal Bands 0 CSF Oligoclonal Bands 1 CSF Olig Protein Interp 1 CSF Angiotensin Conv Enz Less than 5 CSF Treponema Ab (FTA) CSF Lyme Disease DNA Not detected Enterovirus Source Enterovirus RNA (PCR) 11/01/18 11/01/18 09:26 09:26 Ser Oligoclonal Bands CSF Oligoclonal Bands CSF Olig Protein Interp CSF Angiotensin Conv Enz CSF Treponema Ab (FTA) Non-reactive CSF Lyme Disease DNA Enterovirus Source Csf Enterovirus RNA (PCR) Negative Microbiology 10/29/18 03:30 Blood - Peripheral Aerobic Blood Culture - Final No growth in 5 days 10/29/18 03:30 Blood - Peripheral Anaerobic Blood Culture - Final No growth in 5 days 10/29/18 00:45 Blood - Peripheral Aerobic Blood Culture - Final No growth in 5 days 10/29/18 00:45 Blood - Peripheral Anaerobic Blood Culture - Final No growth in 5 days 11/01/18 09:26 Lumbar Puncture Gram Stain - Final 11/01/18 09:26 Lumbar Puncture CSF Culture - Preliminary No growth in 48 hours 11/01/18 09:26 Cerebral Spinal Fluid - Lumbar Puncture Acid Fast Bacilli Smear - Final No acid fast bacilli seen - Procedures 1/umbar puncture by IR Assessment and Plan - Plan 27-year-old male with no significant past medical history, admitted to inpatient psychiatric services for psychosis, suicidal ideation, anxiety. Patient was started on Seroquel. Today, patient was noted with unsteady gait, tremors, facial twitching, tachycardia and rash. Symptoms have now resolved. Hospital services are requested to assist with medical management. Psychosis, etiology unclear, no prior history of psychiatric illnesses -Continue with psychiatric management -Seroquel has been put on hold as this may have caused allergic reaction vs EPS -Currently on Risperdal Acute encephalopathy: Unclear etiology, on 10/28, patient had sudden change in neurological status including impaired gait, tremors, facial twitching, pinpoint rash to chest area, tachycardia with elevated temperature 99.2. Unclear if symptoms are due to allergic reaction to Seroquel, received 2 doses since 10/27. Possible EPS is another possibility. Reported headache, concern for encephalitis. Luisat called on 10/27, pt. noted with HR 130s, Temp 99.9. Per RN and nursing documentation. Pt. had been masturbating prior to event. He was transferred to [facility] psych. Sepsis work up done, IVF bolus given and started on NS at 125/hr -recommend to continue holding Seroquel -neuro checks stable. -CT head negative -TSH and B12 okay, RPR pending -No evidence of infection, neg flu, BC neg. UA neg. -Taking PO well, off IVF now -reported chest pain, myalgias-trop negative. -Pt. was sexually inappropriate with female staff (RN) -No rash noted. However, continue holding Seroquel -Neurology consulted, appreciate assistance -EEG reviewed and unremarkable -11/01/18 S/p Lumbar puncture by IR -Continue to monitor CSF studies, labs unremarkable, and CSF culture with no growth x48 hours DVT Prophylaxis: patient is ambulatory Discharge Planning: Hospitalist will continue to monitor CSF studies until tomorrow, if negative x72hrs, will sign off at that time.
--- NOTE | 2018-11-04 12:08 | P.PN ---
Subjective Interval history: Follow-up for psychosis, concern for encephalitis. The patient is seen ambulating the hallways. He states he is doing much better today. RN also reports he is doing much better today. The patient denies any fever/chills, headache, neck pain, or any other medical complaints. Physical Exam Vital signs: Vital Signs 11/03/18 17:03 11/04/18 06:00 Temperature 99 F 97.6 F Pulse Rate 116 H 79 Respiratory Rate 19 16 Blood Pressure 134/70 141/67 H Pulse Oximetry 94 L 99 Intake & Output 11/03/18 11/04/18 11/04/18 18:59 06:59 18:59 Intake Total 360 / 360 Balance 360 / 360 Intake: Oral 360 / 360 Other: Date of Last Bowel Movement 11/04/18 Narrative: GENERAL: Well-nourished, well-developed young male patient in [facility]. Ambulatory. SKIN: Warm and dry. No rash. HEENT: Normocephalic. Atraumatic. Pupils equal and round. Mucous membranes pink and moist. CARDIOVASCULAR: Regular rate and rhythm. No murmur appreciated. RESPIRATORY: No accessory muscle use. Clear to auscultation. Breath sounds equal bilaterally. GASTROINTESTINAL: Abdomen soft, non-tender, nondistended. Normoactive bowel sounds x4. MUSCULOSKELETAL: No obvious deformities. Extremities without clubbing, cyanosis , or edema. NEUROLOGICAL: Awake and alert. No obvious cranial nerve deficits. Moving all extremities spontaneously. Normal speech. PSYCHIATRIC: insight and judgment questionable. Results - Labs CBC & Chem 7: 10/31/18 11:52 10/29/18 00:45 Laboratory Results - last 24 hr 11/01/18 11/01/18 11/01/18 09:26 09:26 09:26 CSF Myelin Basic Protein Less than 2.0 L Ser Oligoclonal Bands 0 CSF Oligoclonal Bands 1 CSF Olig Protein Interp 1 CSF VDRL CSF Cryptococcus Ag Not detected 11/01/18 09:26 CSF Myelin Basic Protein Ser Oligoclonal Bands CSF Oligoclonal Bands CSF Olig Protein Interp CSF VDRL Non-reactive CSF Cryptococcus Ag Microbiology 11/01/18 09:26 Lumbar Puncture Gram Stain - Final 11/01/18 09:26 Lumbar Puncture CSF Culture - Final No growth in 72 hours 10/29/18 03:30 Blood - Peripheral Aerobic Blood Culture - Final No growth in 5 days 10/29/18 03:30 Blood - Peripheral Anaerobic Blood Culture - Final No growth in 5 days 10/29/18 00:45 Blood - Peripheral Aerobic Blood Culture - Final No growth in 5 days 10/29/18 00:45 Blood - Peripheral Anaerobic Blood Culture - Final No growth in 5 days - Procedures 1/2lumbar puncture by IR Assessment and Plan - Plan 27-year-old male with no significant past medical history, admitted to inpatient psychiatric services for psychosis, suicidal ideation, anxiety. Patient was started on Seroquel. Today, patient was noted with unsteady gait, tremors, facial twitching, tachycardia and rash. Symptoms have now resolved. Hospital services are requested to assist with medical management. Psychosis, etiology unclear, no prior history of psychiatric illnesses -Continue with psychiatric management -Seroquel has been put on hold as this may have caused allergic reaction vs EPS -Currently on Risperdal Acute encephalopathy: Unclear etiology, on 10/28, patient had sudden change in neurological status including impaired gait, tremors, facial twitching, pinpoint rash to chest area, tachycardia with elevated temperature 99.2. Unclear if symptoms are due to allergic reaction to Seroquel, received 2 doses since 10/27. Possible EPS is another possibility. Reported headache, concern for encephalitis. Noahtrest called on 10/27, pt. noted with HR 130s, Temp 99.9. Per RN and nursing documentation. Pt. had been masturbating prior to event. He was transferred to [facility]. Sepsis work up done, IVF bolus given and started on NS at 125/hr -recommend to continue holding Seroquel -neuro checks stable. -CT head negative -TSH and B12 okay, RPR pending -No evidence of infection, neg flu, BC neg. UA neg. -Taking PO well, off IVF now -reported chest pain, myalgias-trop negative. -Pt. was sexually inappropriate with female staff (RN) -No rash noted. However, continue holding Seroquel -Neurology consulted, appreciate assistance -EEG reviewed and unremarkable -11/01/18 S/p Lumbar puncture by IR -CSF culture with no growth x72 hours DVT Prophylaxis: patient is ambulatory Discharge Planning: The patient is medically stable at this time. Hospitalist will sign off. Please reconsult as needed if any new issues arise. Thank you very much for this consultation.
--- NOTE | 2018-11-04 14:36 | P.PNPSY ---
Subjective Chief Complaint: Follow-up for disorganized behavior and suicidal ideation Remarks: Patient was seen and case discussed with nursing. Patient is goal oriented and discusses his future plans to go to school. He is compliant with his medications. He says his suicidal ideation is resolved. Behaving well on the unit and compliant with medications. Review of Systems All other systems reviewed negative except as stated in HPI Mental Status Examination Appearance: Appropriate Consciousness: Alert, Highly distractible Orientation: Person, Place Motor Activity: Normal gait, Other (Observed to be pacing on the unit) Speech: Unremarkable Language: Adequate Fund of Knowledge: Inadequate Attention and Concentration: Inadequate Memory: Impaired Mood: Other ("Not too good today") Affect: Blunt Thought Process & Associations: Disorganized, Other ([place]) Thought Content: Thought blocking Hallucination Type: None Delusion Type: Paranoid (Lessening) Suicidal Ideation: No Suicidal Plan: No Suicidal Intention: No Homicidal Ideation: No Homicidal Plan: No Homicidal Intention: No Insight: Poor Judgment: Poor Assessment and Plan - Assessment (1) Unspecified psychosis Code(s): F29 - Unspecified psychosis not due to a substance or known physiological condition Status: Acute - Plan Plan: Continue current treatment plan Justification for Continued Inpatient Stay: Patient would decompensate in a less restrictive setting
--- NOTE | 2018-11-05 15:22 | P.PNPSY ---
Subjective Chief Complaint: Follow-up for disorganized behavior and suicidal ideation Remarks: Reviewed electronic medical records and discussed case with staff. Follow-up was conducted in the patient's room with SERVANDO Singh present. His nurse reports he has been compliant with his medications and doing better. Patient states he feels, "a little bit better". He is complaining of a stomachache and when asked he admits that he has not had a bowel movement in some time now. I have ordered senna scheduled 1 time per day and educated him on the importance of staying hydrated moving. States his appetite's been good. Reports that he does still have some difficulty sleeping at times. Overall I do note improvement in his mood and he is able to communicate better. Mental Status Examination Appearance: Appropriate Consciousness: Alert, Highly distractible Orientation: Person, Place Motor Activity: Normal gait, Other (Observed to be pacing on the unit) Speech: Unremarkable Language: Adequate Fund of Knowledge: Inadequate Attention and Concentration: Inadequate Memory: Impaired Mood: Other ("Not too good today") Affect: Blunt Thought Process & Associations: Disorganized, Other ([place]) Thought Content: Thought blocking Hallucination Type: None Delusion Type: Paranoid (Lessening) Suicidal Ideation: No Suicidal Plan: No Suicidal Intention: No Homicidal Ideation: No Homicidal Plan: No Homicidal Intention: No Insight: Poor Judgment: Poor Assessment and Plan - Assessment (1) Unspecified psychosis Code(s): F29 - Unspecified psychosis not due to a substance or known physiological condition Status: Acute - Plan Plan: Patient will be reevaluated by the attending psychiatrist. Continue with current treatment plan. Justification for Continued Inpatient Stay: Moving this patient to a less restrictive environment would likely result in decompensation.
[2018-11-05] MEDS: Senna/Docusate Sodium 8.6/50 MG Tablet PO SCH (15:56)
[2018-11-06 05:17] VITALS: RESP 16
[2018-11-06 05:31] VITALS: TEMP 98.4; O2SAT 95
[2018-11-06 05:33] VITALS: BP 119/80; PULSE 88
--- NOTE | 2018-11-06 08:40 | P.TTN ---
- Patient Problems Problems: 1. Discharge planning 2. Medication compliance 3. Knowledge deficit 4. Lack of coping skills - Progress Toward Goals Provider Present: Dr. Emelina Brandt Provider Input: 11/06/18 Per pt is ready for d/c as long as he has a stable place to go to and is connected with services. Therapist to let MD know where pt will be going. Nurse Input: 11/06/18 Per RN pt is compliant taking his meds and has not presented any behavior issues. Psychiatric Counselors Present: Other Psychiatric Therapist Input: 11/06/18 Therapist will be working with pt to be d/c back to his step mother's home and he will be connected with services. Group Spec/RT/OT/IQBAL Present: Sreekanth Fisher OT Group Spec/RT/OT/IQBAL Input: 11/06/18 Pt doesn't attend groups despite encouragement from staff. - Documentation Teaching Recipient: Patient
[2018-11-06] MEDS: Senna/Docusate Sodium 8.6/50 MG Tablet PO SCH (08:54)
--- NOTE | 2018-11-06 10:35 | P.DSPSY ---
Psychiatry Discharge Summary Inpatient Psychiatric care?: Yes Advance Directives: No Mental Health Advance Directive: No Health Care Proxy: No - Admission Admission Date: October 27, 2018 16:07 - Admission Diagnosis (1) Unspecified psychosis Code(s): F29 - Unspecified psychosis not due to a substance or known physiological condition Brief History: Patient is a 27-year-old man, single, no children, unemployed, domiciled with stepmother, with an unclear past psychiatric history but anxiety disorder as per chart, but denies any previous psychiatric admissions, suicide attempts but has one episode of self-injurious behavior where he reports having burned his hand as a child and as well and endorsing being on psychiatric medications as a child as well (unspecified), with a substance use history significant for marijuana use and alcohol use which he states last use 1 year ago, with no significant past medical history who was brought in voluntarily by family with physical complaints and anxiety which upon evaluation patient was noted to have some disorganization, endorsing auditory hallucinations as well as suicidal ideation which patient was admitted to the inpatient psychiatry for further evaluation and management. As per chart patient was recently [place] acted and was discharged and had family endorse concern of suicide. Upon evaluation seen with staff noted B, cooperative. He is noted to have some disorganization during interview. He states that he had been feeling "weird, anxious and depressed" for the past couple of months patient also endorsed having "drank a lot used verbal and marijuana in contrary to report of him having stopped a year ago when later questioned about substance use. Patient states that sometimes he has a problem "during the day and night" but was able to specify due to his disorganization will provide more history. He also mentions having paranoid persecutory delusions of "5 people" but not able to elaborate more for the past year. He states that he has been having recent suicide ideation 3 days ago as well as today but states that he is very close and acting on it. He states having had a suicide ideations this morning but denies at time of interview and also endorsing nonspecific homicidal ideation but did not elaborate toward who the patient was noted to hesitate and refused to continue to explain. Patient also reporting having had previous episodes of auditory hallucinations stating that he heard a lot of voices around him but denying at time of interview. Family psychiatric history: Denies Past psychiatric history: Anxiety disorder as per chart, no previous psychiatric admissions, suicide attempts, has one previous self-injurious behavior burning his hands as a child. Patient reports having been on psychiatric medication as a child but was unable to recall. Substance use history: Tobacco use "sometimes", reports alcohol marijuana use 1 year ago contrary to recent statement during interview that he drank a lot and used a lot of marijuana. Urine toxicology was negative. Past with history: Denies Allergies: NKDA Social history: Single, unemployed, domiciled stepmother. Tobacco Use In Past 30 Days: No How Often Do You Have a Drink Containing Alcohol: Never Hospital Course: Patient is a 27-year-old man, single, no children, unemployed, domiciled with stepmother, with an unclear past psychiatric history but anxiety disorder as per chart, but denies any previous psychiatric admissions, suicide attempts but has one episode of self-injurious behavior where he reports having burned his hand as a child and as well and endorsing being on psychiatric medications as a child as well (unspecified), with a substance use history significant for marijuana use and alcohol use which he states last use 1 year ago, with no significant past medical history who was brought in voluntarily by family with physical complaints and anxiety which upon evaluation patient was noted to have some disorganization, endorsing auditory hallucinations as well as suicidal ideation which patient was admitted to the inpatient psychiatry for further evaluation and management. Patient was admitted to a locked, inpatient psychiatric unit. Appropriate precautions were in place throughout patient's hospital stay. Patient was seen and examined on the unit by psychiatry. Psychotropic medications were adjusted. There was no evidence of any suicidality or homicidality on the inpatient unit. Patient's mood and psychosis improved with the benefit of psychopharmacological treatment and had no behavioral disturbance since admission. Patient was noted to have reached stable mood, noted to participate and engage in treatment and interact with staff adequately. Patient noted to be future oriented with plans to continue treatment and outpatient follow-up appointments for continuity of care. Counselor has arranged discharge plan. On the day of discharge: Patient seen and examined; chart reviewed. Case discussed with nurse and counselor. No behavioral issues overnight. On my examination today, the patient denies any suicidal homicidal ideation, intent or plan on direct questioning and contracts for safety. Patient denies any perceptional disturbances and no delusional material verbalized today. Patient denies any side effects from medication and has understanding of medication regimen and education. No physical complaints. Suicide and violence risk assessment on day of discharge both suggest lower imminent risk, and the patient's level of function is adequate for plan level of outpatient care. Patient has maximized benefit from this inpatient psychiatric hospital stay and will be discharged with discharge plan as arranged by counselor. Patient advised to return to psychiatric emergency room for any concerning psychiatric symptoms. Patient agrees with plan. - Discharge Discharge Date: 11/06/18 - Discharge Diagnosis (1) Unspecified psychosis Code(s): F29 - Unspecified psychosis not due to a substance or known physiological condition Status: Acute Discharge Disposition: Home - Discharge Instructions Discharge Diet: Regular Diet Activities You Can Perform: See Additionl Instruction (Per medical providers recommendations) - Discharge Time > 30 minutes Mental Status Examination Appearance: Appropriate Consciousness: Alert, Highly distractible Orientation: Person, Place Motor Activity: Normal gait, Other (Observed to be pacing on the unit) Speech: Unremarkable Language: Adequate Fund of Knowledge: Inadequate Attention and Concentration: Adequate Memory: Unremarkable Mood: Appropriate Affect: Appropriate Thought Process & Associations: Intact, Linear Thought Content: Appropriate Hallucination Type: None Delusion Type: None Suicidal Ideation: No Suicidal Plan: No Suicidal Intention: No Homicidal Ideation: No Homicidal Plan: No Homicidal Intention: No Insight: Fair Judgment: Impulsive Discharge/Advance Care Plan - Results Vital Signs: Last Vital Signs Temp 98.4 F 11/06/18 05:30 Pulse 88 11/06/18 05:30 Resp 16 11/06/18 05:30 BP 119/80 11/06/18 05:30 Pulse Ox 95 11/06/18 05:30 Lab Results: Laboratory Results Hemoglobin A1c 5.8 % (4.3-6.0) 10/28/18 07:50 Triglycerides 51 mg/dL (42-150) 10/28/18 07:50 Cholesterol 119 mg/dL (120-200) L 10/28/18 07:50 LDL Cholesterol, Calc 65 mg/dL (0-99) 10/28/18 07:50 HDL Cholesterol 43.7 mg/dL (40.0-60.0) 10/28/18 07:50 TSH 3.280 uIU/mL (0.358-3.740) 10/29/18 00:45 Urine Culture Comments Culture not ind 10/26/18 09:21 Summary of Procedures: Lumbar puncture Imaging: ITS Impressions Chest X-Ray 10/26/18 07:56 CONCLUSION: 1. Cardiomegaly. 2. No focal infiltrate or pulmonary vascular congestion. Head CT 10/29/18 00:00 CONCLUSION: Negative noncontrast head CT. . Lumbar Puncture Fluoroscopy 11/01/18 14:07 CONCLUSION: 1. Uncomplicated fluoroscopically guided lumbar puncture. Pending Results: None - Medications Number of antipsychotic medications at discharge: 1 - Discharge Care Plan Goals to Promote Your Health: * To prevent worsening of your condition and complications * To maintain your health at the optimal level Directions to Meet Your Goals: Take your medications as prescribed Follow your dietary instruction Follow activity as directed Keep your appointments as scheduled Take your immunizations and boosters as scheduled If your symptoms worsen call your PCP, if no PCP go to Urgent Care Center or Emergency Room For 23/05 questions related to your inpatient stay or results of tests pending at discharge, please contact Dr. Jatin Brandt MD at Smoking is Dangerous to Your Health. Avoid second hand smoking
== END 2018-11-06 12:05 | disposition short-term general hospital (02) | DRG 885 ==
LOC: NEPC 07:39 → NEPJ 10-27 15:42 → NEDA 10-27 16:07 → H260 10-27 16:14 → H4EA 10-29 00:15 → H270 10-30 08:46 → H260 11-05 14:56
PROVIDERS: ADMIT Student in an Organized Health Care Education/Training Program; ATTEND Student in an Organized Health Care Education/Training Program
CPT/HCPCS: 62270; 70450; 71010; 71045; 77003; 80048; 80053; 80061; 80307; 81001; 82040; 82042; 82164; 82550; 82552; 82607; 82784; 82945; 83036; 83520; 83605; 83615; 83690; 83873; 83916; 84155; 84157; 84443; 84484; 85025; 85027; 85379; 85610; 86403; 86592; 86780; 86781; 87015; 87040; 87070; 87102; 87116; 87205; 87206; 87275; 87276; 87327; 87449; 87496; 87497; 87498; 87529; 87801; 87804; 88108; 89050; 89051; 93005; 95819; 99285; J2060; J7030; J7040; Q0163